=== PATIENT | male | born 2005 | race Caucasian/White ===

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

== ENCOUNTER 2024-02-06 21:28 | Emergency (ER) | payer MEDICAID, SELFPAY ==
[2024-02-06 21:29] VITALS: BP 149/93; PULSE 70; RESP 16; TEMP 36.2; O2SAT 98; BMI 22.7
--- NOTE | 2024-02-06 22:25 | RAD_ITS ---
STUDY: X-RAY CHEST REASON FOR EXAM: Male, 18 years old. chest pain TECHNIQUE: August 22 2023 COMPARISON: None. FINDINGS: The lungs are clear and expanded. There is no demonstrated pleural abnormality. Normal size heart. Normal mediastinum and charlie. Normal visualized pulmonary arteries. Normal visualized aortic arch and descending thoracic aorta. Normal visualized thoracic spine. Normal visualized ribs, clavicles, and shoulders. There is no demonstrated abnormality of the visualized soft tissue structures of the upper abdomen. RAD/Chest PA and Lateral IMPRESSION: Normal x-ray examination of the chest. Electronically Signed: Edilson Banks MD at 23:04 EDT ,
--- NOTE | 2024-02-06 22:31 | EKG12_ITS ---
Test Reason : CP Blood Pressure : / mmHG Vent. Rate : 068 BPM Atrial Rate : 068 BPM P-R Int : 146 ms QRS Dur : 090 ms QT Int : 364 ms P-R-T Axes : 026 086 040 degrees QTc Int : 387 ms Normal sinus rhythm Normal ECG Confirmed by Osito Montes ([id number]), graphic editor ECTOR ABURTO ([id number]) on 02/07/2024 12:57:32 PM Referred By: [facility] Confirmed By:Osito Montes
--- NOTE | 2024-02-06 23:46 | EX.ED.DYSGE1 ---
HPI History of Present Illness Chief Complaint: Chest Pain Informant: patient and friend Narrative Narrative: Patient is a 18-year-old male with history of anxiety. He states over the past 6 to 7 months he has been experience episodes of palpitations and chest discomfort. He states he went to a safety spec who performed an EKG and told him there was no abnormalities. He states his family doctor has him on anxiety medication. He states that despite having the medication he still has recurrent symptoms. He denies any family history of cardiac disease at a young age. He denies any illicit drug use or excessive stimulant use. He denies any recent travel surgery or history of DVT/PE. Patient states that he has been having palpitations still and feeling some upper back pain. He does admit to recent swimming activity but does not feel this is muscle in nature and therefore comes in for evaluation [facility] Medical History (Updated 02/07/24 @ 03:[address] Murray Gorman DO) Anxiety Home Medications ?Medication ?Instructions ?Recorded ?Last Taken ?Type sertraline 25 mg tablet 25 mg PO DAILY 02/06/24 Unknown History Allergy/AdvReac Type Severity Reaction Status Date / Time No Known Allergies Allergy Verified 02/06/24 21:32 Social History Smoking Status: Current some day smoker tobacco type: e-cigarettes ROS ROS ED Constitutional Constitutional ED: Denies chills or fever(s) ENT ENT ED: Denies sore throat Cardiovascular Cardiovascular: Reports chest pain, palpitations and racing heartbeat Respiratory/Chest Respiratory/Chest: Denies cough or dyspnea Gastrointestinal Gastrointestinal: Denies abdominal pain, diarrhea, nausea or vomiting Genitourinary Genitourinary ED: Denies dysuria Musculoskeletal Musculoskeletal: Reports back pain Integumentary Denies rash Neurologic Neurologic: Denies headache(s) Psychiatric Psychiatric: Reports anxiety; Denies suicidal ideation or suicidal thoughts Hematologic/Lymphatic Hematologic/Lymphatic: Denies easy bleeding or easy bruising EXAM Physical Exam Const Vital Signs: 02/06/24 21:29 02/07/24 00:00 02/07/24 00:06 Temperature 97.2 F L 98.1 F Temperature Source Temporal Pulse Rate 70 63 63 Respiratory Rate 16 18 13 Blood Pressure 149/93 H 134/79 H Blood Pressure Mean 111 97 Pulse Ox 98 98 98 Oxygen Delivery Method Room Air Room Air Positive well nourished and well developed General Appearance ED: well developed; Negative for pallor HEENT HEENT Narrative: Normocephalic atraumatic Eyes PERRL and EOMs intact bilaterally Neck supple Neck Narrative: No carotid bruit noted Chest Wall palpation of chest normal Chest Narrative: No bony deformity or crepitance Resp normal respiratory effort and clear to auscultation bilaterally Cardio regular rate and regular rhythm Rate: other Other Details: Heart is regular rate and rhythm without murmurs rubs or gallop Radial and carotid pulses equal and symmetric Back/Spine no CVA tenderness Back/Spine Narrative: No bony deformity or step-off of the thoracic or lumbar spine no midline tenderness to palpation Extremity normal to inspection Extremity Narrative: No asymmetric edema no pitting edema negative Homans' sign bilaterally Neuro oriented x3, CN's II-XII intact bilaterally and no sensory deficits noted Sensorium / Orientation: alert Motor Exam: strength 5/5 throughout Psych Psych Narrative: Patient has a nervous/anxious affect Skin no rashes or lesions noted and no wounds General Skin Exam: Negative for jaundice or pallor MDM MDM MDM Narrative Medical decision making narrative: Patient arrived to ER mildly hypertensive otherwise with stable vitals. He is low risk for cardiovascular disease as well as DVT/PE. His history and exam is most consistent with anxiety as a cause of his symptoms. However as there is concern he could have cardiac dysrhythmia or acute coronary syndrome or potential pneumonia or pneumothorax I did elect to perform an EKG and chest x-ray. EKG showed normal sinus rhythm without ischemic changes going against acute coronary syndrome. He was kept on the monitor and there was no cardiac dysrhythmia noted. Chest x-ray revealed no acute lung pathology such as pneumonia or pneumothorax. Therefore at this time as patient is low risk for cardiovascular disease and vitals are stable and there is been no abnormal heart rhythm as well as no signs of decreased blood flow and x-ray does not show any lung pathology I feel he can follow-up with his family doctor on outpatient basis to discuss potential echo and Holter monitor if symptoms persist. History & Record Review Discussion w/independent historian: Patient and Friend Radiography Diagnostic Testing: Clinical Impression(s) from Imaging Studies Chest X-Ray 02/06/24 22:25 IMPRESSION: Normal x-ray examination of the chest. Electronically Signed: Edilson Banks MD at 23:04 EDT , 2 view chest x-ray as interpreted by the emergency medicine physician reveals no acute infiltrate pneumothorax pleural effusion or widening of the mediastinum Discharge Plan Triage Chief Complaint: Chest Pain ED Provider: Murray Gorman Dx/Rx/DC Orders Clinical Impression: Acute nonspecific chest pain with low risk of coronary artery disease, Anxiety Instructions: ED Chest Pain, Uncertain Cause Prescriptions: No Action sertraline 25 mg tablet 25 mg PO DAILY Primary Care Provider: Alba Schwartz NP Referrals: Alba Schwartz ASSEMBLY AND PACKING SUPERVISOR, ASSEMBLY AND PACKING SUPERVISOR-C [Primary Care Provider] - Activity Restrictions/Additional Instructions: Please discuss with your family doctor about obtaining an outpatient echo to further assess the cause of your symptoms and check for potential valvular issues. Also because of your recurrent palpitations discuss obtaining a Holter monitor to further assess your cardiac rhythm over a longer period of time. Return to the ER should you have any further concerns Print Language: Mongolian Disposition Disposition: Home, Self Care Discharge Date/Time: 02/07/24 00:07
[2024-02-07] VITALS: PULSE 63; RESP 18; O2SAT 98
[2024-02-07 00:06] VITALS: BP 134/79; PULSE 63; RESP 13; TEMP 36.7; O2SAT 98
== END 2024-02-07 00:07 | disposition home or self-care (01) ==
PROVIDERS: Emergency Provider Emergency Medicine; PCP Nurse Practitioner Family; Visit Provider Emergency Medicine
DX: F41.9 Anxiety disorder, unspecified (principal); Z79.899 Other long term (current) drug therapy; F17.290 Nicotine dependence, other tobacco product, uncomplicated; R07.9 Chest pain, unspecified
CPT/HCPCS: 71046; 93005; 99283; A4216

== ENCOUNTER 2025-04-06 00:12 | Emergency (ER) | payer MEDICAID, SELFPAY ==
[2025-04-06 00:13] VITALS: BP 114/57; PULSE 115; RESP 18; TEMP 37.1; O2SAT 94; BMI 23.2
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
--- OUTSIDE RECORDS SUMMARY | 2025-04-06 01:20 | XMS RPT_ITS | CCD ---
Author Organization [facility] Care Team Providers Care Clinical Resource Coordinator Name Role Phone DELIO VACA Attending Unavailable REFERRED, SELF Referring Unavailable ECTOR SINGH Primary Care Unavailable NABIL MEYER, MODESTO Cm Primary Care Physician Queden PARQUET FLOOR LAYER.DECKHAND SHRIMP BOAT, Alba A Primary Care Provider Queden [employer].DECKHAND SHRIMP BOAT, Alba A Primary Care Provider Murray Gorman Attending Unavailable [place] CYBER THREAT ANALYST, Alba Primary Care Unavailable Uli Bond Attending Unavailable Care Physician, No Primary Primary Care Unava ilable QUEDEN, ALBA A Attending Unavailable QUEDEN, ALBA A Primary Care Unavailable QUEDEN, ALBA A Referring Unavailable QUEDEN, ALBA A Primary Care Unavailable QUEDEN, ALBA A Attending Unavailable QUEDEN, ALBA A Primary Care Unavailable MANDO GOODEN DO Attending Unavailable NABIL MEYER, MODESTO Cm Primary Care Unavailjohanna ALAS MD, DR MARCUS Attending Anita CHAPMAN MD, MODESTO Cm Primary Care Unavailjohanna ALAS MD, DR MARCUS Attending Unavailjohanna CHAPMAN MD, MODESTO Cm Primary Care Unavailjohanna e Unavailable Primary Care Provider UnavailANNABELLE Sparrow Attending Unavailable Medications Current Medications Medication Drug Class(es) Dates Sig (Normalized) Sig (Original) cyclobenzaprine hydrochloride 5 mg oral tablet (9 sources) Muscle Relaxant Start: 02-10-2024 End: 04-03-2024 take 1 tablet by mouth twice daily as needed cyclobenzaprine (FLEXERIL) 5 mg tablet Indications: Upper back pain Take 1 tablet by mouth two times a day as needed. 14 tablet 04/03/2024 Active naproxen 500 mg oral tablet (7 sources) Nonsteroidal Anti-inflammatory Drug Start: 02-10-2024 take 1 tablet by mouth twice daily as needed for pain naproxen (NAPROSYN) 500 mg tablet Indications: Upper back pain Take 1 tablet by mouth two times a day as needed (FOR PAIN - TAKE WITH FOOD.). 14 tablet 02/10/2024 Active sertraline 100 mg oral tablet (18 sources) Serotonin Reuptake Inhibitor Start: 05-08-2024 take 1 tablet by mouth once daily sertraline (ZOLOFT) 100 mg tablet Indications: Anxiety Take 1 tablet by mouth once daily. 90 tablet 1 05/08/2024 Active Start: 03-05-2024 Zoloft See Ins tructions, Oral qDay, 0 Refill(s) Start Date: 03/05/24 Status: Ordered Start: 02-10-2024 End: 05-07-2024 take 1 tablet by mouth once daily sertraline (ZOLOFT) 100 mg tablet Indications: Anxiety Take 1 tablet by mouth once daily. 90 tablet 1 04/03/2024 05/07/2024 Discontinued Start: 11-14-2023 End: 02-10-2024 take 1 tablet by mouth once daily sertraline (ZOLOFT) 25 mg tablet Indications: Anxiety Take 1 tablet by mouth once daily. 90 tablet 1 12/12/2023 02/10/2024 Discontinued Comment on above: Take 1 tablet by stahya th as directed. Take 1/2 tablet daily for 7 days and then increase to 1 full tablet daily Completed/Discontinued Medications Medication Drug Class(es) Dates Sig (Normalized) Sig (Original) ondansetron 4 mg disintegrating oral tablet (1 source) Serotonin-3 Receptor Antagonist Start: 04-29-2024 End: 04-29-2024 take 1 dose by mouth once 4 mg, Oral, ONCE, 1 dose, On 04/29/24 at 0245 Problems Active Problems Problem Classification Problem Date Documented Da te Episodic/Chronic Anxiety disorders (7 sources) Anxiety; Translations: [Anxiety disorder, unspecified] Onset: 11-14-2023 11-14-2023 Chronic Fluid and electrolyte disorders (1 source) Hypokalemia; Translations: [Hypokalemia] 08-22-2023 Episodic Other skin disorders (1 source) Mass of subcutaneous tissue of upper limb; Translations: [Localized swelling, mass and lump, unspecified upper limb] Onset: 08-30-2023 Episodic Spondylosis; intervertebral disc disorders; other back problems (5 sources) Backache; Translations: [Dorsalgia, unspecified] Onset: 02-10-2024 02-10-2024 Episodic Past or Other Problems Problem Classification Problem Date Documented Da te Episodic/Chronic Alcohol-related disorders (3 sources) Alcohol intoxication; Translations: [Alcohol use, unspecified with intoxication, uncomplicated] Onset: 04-29-2024 04-29-2024 Episodic Cardiac dysrhythmias (18 sources) Palpitations; Translations: [Palpitations] Onset: 09-07-2023 08-22-2023 Episodic Malaise and fatigue (2 sources) Lack of energy; Translations: [Other fatigue] Onset: 11-14-2023 11-14-2023 Episodic Results Test Name Value Interpretation Reference Range Facility GLUCOSE POCon 04-29-2024 Glucose [Mass/Vol] 103 mg/dL High 70 - 99 mg/dL [facility] Interpretation and review of laboratory results Abnormal [facility] POC Sample Type CAPBL [facility] Test performed at address of the patient encounter. [facility] CNOVon 02-10-2024 CNOV Office Visit (AGFAMPLE) ANDREAMEHULCHACHA MARI ([id number]) 3 M Date Time Provider Department 02/10/24 2:20 PM ALBA KEN During your visit today, we recorded the following information about you: Temperature Pulse Respiration Blood pressure 98 degrees 60/minute 18/minute 106/62 Weight Height 66.7 kg 1.721 m Alba Ken APRN.DECKHAND SHRIMP BOAT 02/12/2024 3:49 PM Signed CHIEF COMPLAINT: Chacha Mendez II is a 18 year old male who presents for Follow up anxiety . I reviewed past medical, surgical, social, and family histories today and updated chart. Allergies, chronic medications, and supplements were also reviewed. Having upper back pain on both sides for the last 4-5 days Hard to go to sleep Pain can be sharp No previous injury No N/T Massage helped Hasn't taken anything for pain Went to the [facility] ER for chest pain Couldn't take a deep breath in because of chest pain and back pain Flora like his heart would beat fast after he gets out of the pool CXR was normal and EKG showed NSR He was advised to speak with me about obtaining a Holter monitor He was also advised to discuss increasing his Zoloft since there may be an anxiety component to his symptoms He has take 2 tablets of his Zoloft for the last week and hasn't noticed a difference yet STUDY: X-RAY CHEST REASON FOR EXAM: Male, 18 years old. chest pain TECHNIQUE: August 22 2023 COMPARISON: None. FINDINGS: The lungs are clear and expanded. There is no demonstrated pleural abnormality. Normal size heart. Normal mediastinum and charlie. Normal visualized pulmonary arteries. Normal visualized aortic arch and descending thoracic aorta. Normal visualized thoracic spine. Normal visualized ribs, clavicles, and shoulders. There is no demonstrated abnormality of the visualized soft tissue structures of the upper abdomen. The history is provided by the patient. History reviewed. No pertinent past medical history. History reviewed. No pertinent surgical history. Social History Tobacco Use Smoking status: Never Smokeless tobacco: Never Vaping Use Vaping Use: Former Substances: Nicotine Substance Use Topics Alcohol use: Never Drug use: Never ALLERGIES No Known Allergies Family History Problem Relation Age of Onset other (WPW) Mother Hypertension Father Thyroid Sister Heart Attack Paternal Grandfather Current Outpatient Medications Medication Sig Dispense Refill sertraline (ZOLOFT) 100 mg tablet Take 1 tablet by mouth once daily. 30 tablet 2 cyclobenzaprine (FLEXERIL) 5 mg tablet Take 1 tablet by mouth two times a day as needed for pain or muscle spasm. 14 tablet 0 naproxen (NAPROSYN) 500 mg tablet Take 1 tablet by mouth two times a day as needed (FOR PAIN - TAKE WITH FOOD.). 14 tablet 0 No current facility-administered medications for this visit. Review of Systems Constitutional: Negative for appetite change, chills, diaphoresis, fatigue, fever and unexpected weight change. Respiratory: Positive for shortness of breath. Negative for cough, chest tightness and wheezing. Cardiovascular: Positive for chest pain and palpitations. Negative for leg swelling. Gastrointestinal: Negative for abdominal pain, constipation, diarrhea, nausea and vomiting. Musculoskeletal: Positive for back pain. Neurological: Negative for headaches. Psychiatric/Behaviora l: Positive for sleep disturbance. The patient is nervous/anxious. BP 106/62 Pulse 60 Temp 98 Resp 18 Ht 5' 7.75 (1.72m) Wt 147 lb (66.7kg) SpO2 98% BMI 22.51 kg/(m2). Physical Exam Vitals and nursing note reviewed. Constitutional: Appearance: Normal appearance. HENT: Mouth/Throat: Mouth: Mucous membranes are moist. Pharynx: Oropharynx is clear. Eyes: Pupils: Pupils are equal, round, and reactive to light. Cardiovascular: Rate and Rhythm: Normal rate and regular rhythm. Pulses: Normal pulses. Heart sounds: Normal heart sounds. No murmur heard. Pulmonary: Effort: Pulmonary effort is normal. Breath sounds: Normal breath sounds. Chest: Chest wall: No swelling, tenderness or crepitus. Musculoskeletal: Cervical back: Neck supple. Lymphadenopathy: Cervical: No cervical adenopathy. Skin: General: Skin is warm and dry. Neurological: Mental Status: He is alert and oriented to person, place, and time. Psychiatric: Mood and Affect: Mood is anxious. Behavior: Behavior normal. Cognition and Memory: Cognition normal. ASSESSMENT/PLAN: 1. Anxiety - ICD9: 300.00, ICD10: F41.9 (primary diagnosis) - Increase Zoloft to 100 mg daily - F/U in 2 months or sooner if needed - SERTRALINE 100 MG TABLET 2. Palpitations - ICD9: 785.1, ICD10: R00.2 - HOLTER MONITOR 72 HOUR 3. Upper back pain - ICD9: 724.5, ICD10: M54.9 - Suspe (more content not included)... Normal [facility] 12 Lead EKGon 02-06-2024 12 Lead EKG [facility] [address] [place] [address] 12 Lead EKG 02/06/24 2144 MR#: [id number] Acct: [id number] Name: CHACHA MENDEZ II Rep #: [id number] : 2005 18 From: Osito Montes MD Attending Dr: Status: DEP ER Ordering Dr: Murray Gorman DO Date: 02/06/24 Location: ED Sex: M H Admitted: Test Reason : CP Blood Pressure : / mmHG Vent. Rate : 068 BPM Atrial Rate : 068 BPM P-R Int : 146 ms QRS Dur : 090 ms QT Int : 364 ms P-R-T Axes : 026 086 040 degrees QTc Int : 387 ms Normal sinus rhythm Normal ECG Confirmed by Osito Montes ([id number]), health editor ECTOR ABURTO ([id number]) on 02/07/2024 12:57:32 PM Referred By: ES Confirmed By:Osito Montes 02/07/24 1257 Date Osito Montes MD CC: CYBER THREAT ANALYST-C Alba Ken; Murray Gorman DO Signed Normal [facility] Chest PA and Lateralon 02-05 Chest PA and Lateral [facility] [address] [place] [address] Chest PA and Lateral MR#: [id number] Acct: [id number] Name: CHACHA MENDEZ II Rep #: [id number] : 2005 M 18 From: Edilson Monroy PCP: TELLY Welch Status: REG ER Study: Chest PA and Lateral Date of Exam: 02/06/24 Exam# [id number] Ordering Dr: Murray Gorman DO [id number] STUDY: X-RAY CHEST REASON FOR EXAM: Male, 18 years old. chest pain TECHNIQUE: August 22 2023 COMPARISON: None. FINDINGS: The lungs are clear and expanded. There is no demonstrated pleural abnormality. Normal size heart. Normal mediastinum and charlie. Normal visualized pulmonary arteries. Normal visualized aortic arch and descending thoracic aorta. Normal visualized thoracic spine. Normal visualized ribs, clavicles, and shoulders. There is no demonstrated abnormality of the visualized soft tissue structures of the upper abdomen. RAD/Chest PA and Lateral IMPRESSION: Normal x-ray examination of the chest. Electronically Signed: Edilson Banks MD at 23:04 EDT , CC: TELLY Ken; Murray Gorman DO Family Resource Specialist: Signed Normal [facility] Emergency Department Summary on 02-06-2024 Emergency Department Summary [facility] Medical Records Department [address] [place] [id number] Emergency Department Summary 02/06/24 MR#: [id number] Acct: [id number] Name: CHACHA MENDEZ II Rep #: [id number] : 2005 18 From: Murray Gorman DO PCP: TELLY Welch Status:DEP ER Location: ED HPI History of Present Illness Chief Complaint: Chest Pain Informant: patient and friend Narrative Narrative: Patient is a 18-year-old male with history of anxiety. He states over the past 6 to 7 months he has been experience episodes of palpitations and chest discomfort. He states he went to a optometrist/practice owner who performed an EKG and told him there was no abnormalities. He states his family doctor has him on anxiety medication. He states that despite having the medication he still has recurrent symptoms. He denies any family history of cardiac disease at a young age. He denies any illicit drug use or excessive stimulant use. He denies any recent travel surgery or history of DVT/PE. Patient states that he has been having palpitations still and feeling some upper back pain. He does admit to recent swimming activity but does not feel this is muscle in nature and therefore comes in for evaluation [facility] Medical History (Updated 02/07/24 @ 03:[address] Murray Gorman, DO) Anxiety Home Medications ???Medication ???Instructions ???Recorded ???Last Taken ???Type sertraline 25 mg tablet 25 mg PO DAILY 02/06/24 Unknown History Allergy/AdvReac Type Severity Reaction Status Date / Time No Known Allergies Allergy Verified 02/06/24 21:32 Social History Smoking Status: Current some day smoker tobacco type: e-cigarettes ROS ROS ED Constitutional Constitutional ED: Denies chills or fever(s) ENT ENT ED: Denies sore throat Cardiovascular Cardiovascular: Reports chest pain, palpitations and racing heartbeat Respiratory/Chest Respiratory/Chest: Denies cough or dyspnea Gastrointestinal Gastrointestinal: Denies abdominal pain, diarrhea, nausea or vomiting Genitourinary Genitourinary ED: Denies dysuria Musculoskeletal Musculoskeletal: Reports back pain Integumentary Denies rash Neurologic Neurologic: Denies headache(s) Psychiatric Psychiatric: Reports anxiety; Denies suicidal ideation or suicidal thoughts Hematologic/Lymphatic Hematologic/Lymphatic : Denies easy bleeding or easy bruising EXAM Physical Exam Const Vital Signs: 02/06/24 21:29 02/07/24 00:00 02/07/24 00:06 Temperature 97.2 F L 98.1 F Temperature Source Temporal Pulse Rate 70 63 63 Respiratory Rate 16 18 13 Blood Pressure 149/93 H 134/79 H Blood Pressure Mean 111 97 Pulse Ox 98 98 98 Oxygen Delivery Method Room Air Room Air Positive well nourished and well developed General Appearance ED: well developed; Negative for pallor HEENT HEENT Narrative: Normocephalic atraumatic Eyes PERRL and EOMs intact bilaterally Neck supple Neck Narrative: No carotid bruit noted Chest Wall palpation of chest normal Chest Narrative: No bony deformity or crepitance Resp normal respiratory effort and clear to auscultation bilaterally Cardio regular rate and regular rhythm Rate: other Other Details: Heart is regular rate and rhythm without murmurs rubs or gallop Radial and carotid pulses equal and symmetric Back/Spine no CVA tenderness Back/Spine Narrative: No bony deformity or step-off of the thoracic or lumbar spine no midline tenderness to palpation Extremity normal to inspection Extremity Narrative: No asymmetric edema no pitting edema negative Homans' sign bilaterally Neuro oriented x3, CN's II-XII intact bilaterally and no sensory deficits noted Sensorium / Orientation: alert Motor Exam: strength 5/5 throughout Psych Psych Narrative: Patient has a nervous/anxious affect Skin no rashes or lesions noted and no wounds General Skin Exam: Negative for jaundice or pallor MDM MDM MDM Narrative Medical decision making narrative: Patient arrived to ER mildly hypertensive otherwise with stable vitals. He is low risk for cardiovascular disease as well as DVT/PE. His history and exam is most consistent with anxiety as a cause of his symptoms. However as there is concern he could have cardiac dysrhythmia or acute coronary syndrome or potential pneumonia or pneumothorax I did elect to perform an EKG and chest x- ray. EKG showed normal sinus rhythm without ischemic changes going against acute coronary syndrome. He was kept on the monitor and there was no cardiac dysrhythmia noted. Chest x-ray revealed no acute lung pathology such as pneumonia or pneumothorax. Therefore at this time as patient is low risk for cardiovascular disease and vitals are stable and there is been no abnormal heart r (more content not included)... Normal [facility] CNCO Letter Text Normal [facility] CNPMaris 02-03-2024 [place] Telephone (AGFAMPLE) CHACHA MENDEZ II ([id number]) 3 M Date Time Provider Department 02/03/24 ALBA KEN During your visit today, we recorded the following information about you: Leah Benitez 02/03/2024 2:47 PM Signed No Show Documentation Chacha Mendez II no showed for an appointment on 02/03/24 with Alba Ken APRN.CNP at 1:20 pm. He was scheduled for follow up anxiety AND meds. I called and was unable to speak with the patient regarding his missed appointment. Chacha did not state the reason that he missed his appointment was because pt did not answer call . Resources discussed/offered to patient: left message. No show determined to be fault of patient: Yes This is the patients second no show in the last 12 months. Patient was rescheduled for NA. Letter sent through [employer]. Is this the Third or Fourth No Show? Melanie Benitez February 03, 2024 2:45 PM Allergies As of Date: 02/03/2024 (No Known Allergies) Date Reviewed: 11/14/2023 Reviewed by: Alba Ken APRN.CNP - Fully Assessed Reason for Visit: No Show [1556] Cmt: Pt no show for appt on 02/03/24 Prescriptions as of 02/03/2024 - sertraline (ZOLOFT) 25 mg tablet Take 1 tablet by mouth once daily. Problem List As Of Date 02/03/2024 Noted Resolved Palpitations [R00.2] 09/07/2023 Encounter Status:Closed by LEAH BENITEZ on 02/03/24 [facility] CNCTaiwo 01-16-2024 CNCO Letter Text [facility] CNPMaris 01-16-2024 [place] Telephone (AGFAMPLE) CHACHA MENDEZ II ([id number]) 3 M Date Time Provider Department 01/16/24 ALBA KEN During your visit today, we recorded the following information about you: SorensenBuffy matute 01/16/2024 2:44 PM Signed No Show Documentation Chacha Mendez II no showed for an appointment on 01/16/2024 with Alba Ken APRN.CNP at 2:00 pm. He was scheduled for follow up for anxiety. I called and was unable to reach the patient regarding his missed appointment Resources discussed/offered to patient: na No show determined to be fault of patient: Yes This is the patients first no show in the last 12 months. Patient was rescheduled for na. Letter sent thru mychart : Yes Is this the Third or Fourth No Show? Melanie Sorensen January 16, 2024 2:43 PM Allergies As of Date: 01/16/2024 (No Known Allergies) Date Reviewed: 11/14/2023 Reviewed by: Alba Ken APRN.DECKHAND SHRIMP BOAT - Fully Assessed Reason for Visit: Missed Appointment [1304] Cmt: 1st no show in 365 days (1st letter sent) Prescriptions as of 01/16/2024 - sertraline (ZOLOFT) 25 mg tablet Take 1 tablet by mouth once daily. Problem List As Of Date 01/16/2024 Noted Resolved Palpitations [R00.2] 09/07/2023 Encounter Status:Closed by BUFFY SORENSEN on 01/16/24 Normal [facility] 25(OH)D3 SerPl-mCncon 2023 25-hydroxyvitamin D3 [Mass/Vol] 21.4 ng/mL Low >=30.0 [facility] Comment on above: Order Comment: Speci men Type: BLOOD SPECIMENOrdering Facility: [facility] Address: [address] [place] [address] Result Comment: Clas sification of 25 [place] Vitamin D status: Deficiency: <= 20.0 ng/ml. Insufficiency: 21.0-29.0 ng/ml. Sufficiency: >= 30.0 ng/ml. Performed By: #### 1 989-3 ####[facility] LABORATORYCLIA [id number] [place] [address] [place] CBC panel Auto (Bld)on 11-13 Erythrocyte distribution width (RBC) [Ratio] 12.0 % 11.5 - 15.0 % [facility] Hematocrit (Bld) [Volume fraction] 43.0 % 39.0 - 51.0 % [facility] Hemoglobin (Bld) [Mass/Vol] 14.3 g/dL 13.0 - 17.0 g/dL [facility] MCH (RBC) [Entitic mass] 32.1 pg 26.0 - 34.0 pg [facility] MCHC (RBC) [Mass/Vol] 33.3 g/dL 30.5 - 36.0 g/dL [facility] MCV (RBC) [Entitic vol] 96.4 fL 80.0 - 100.0 fL [facility] Platelet mean volume (Bld) [Entitic vol] 9.2 fL 9.0 - 12.7 fL [facility] Platelets (Bld) [#/Vol] 235 10*3/uL 150 - 400 k/uL [facility] RBC (Bld) [#/Vol] 4.46 10*6/uL 4.20 - 6.0 0 m/uL [facility] WBC (Bld) [#/Vol] 5.98 10*3/uL 3.70 - 11. 00 k/uL [facility] Erythrocyte distribution width (RBC) [Ratio] 12.0 % Normal 11.5-15.0 [facility] Comment on above: Order Comment: Speci men Type: BLOOD SPECIMENOrdering Facility: [facility] Address: [address] [place] [address] Performed By: #### 5 8410-2 ####[facility] LABCLIA [id number] [place] [address] [place] [facility] Hematocrit (Bld) [Volume fraction] 43.0 % Normal 39.0-51.0 [facility] Comment on above: Order Comment: Speci men Type: BLOOD SPECIMENOrdering Facility: [facility] Address: [address] [place] [address] Performed By: #### 5 8410-2 ####[facility] LABCLIA [id number] [place] [address] [place] Hemoglobin (Bld) [Mass/Vol] 14.3 g/dL Normal 13.0-17.0 [facility] Comment on above: Order Comment: Speci men Type: BLOOD SPECIMENOrdering Facility: [facility] Address: [address] [place] [address] Performed By: #### 5 8410-2 ####[facility] LABCLIA [id number] [place] [address] [facility] MCH (RBC) [Entitic mass] 32.1 pg Normal 26.0-34.0 [facility] Comment on above: Order Comment: Speci men Type: BLOOD SPECIMENOrdering Facility: [facility] Address: [address] [place] [address] Performed By: #### 5 8410-2 ####[facility] LABCLIA [id number] [place] [address] [facility] MCHC (RBC) [Mass/Vol] 33.3 g/dL Normal 30.5-36.0 [facility] Comment on above: Order Comment: Speci men Type: BLOOD SPECIMENOrdering Facility: [facility] Address: [address] [place] [address] Performed By: #### 5 8410-2 ####[facility] LABCLIA [id number] [place] [address] [facility] MCV (RBC) [Entitic vol] 96.4 fL Normal 80.0-100.0 [facility] Comment on above: Order Comment: Speci men Type: BLOOD SPECIMENOrdering Facility: [facility] Address: [address] [place] [address] Performed By: #### 5 8410-2 ####[facility] LABIA [id number] [place] [address] [facility] Platelet mean volume (Bld) [Entitic vol] 9.2 fL Normal 9.0-12.7 [facility] Comment on above: Order Comment: Speci men Type: BLOOD SPECIMENOrdering Facility: [facility] Address: [address] [place] [address] Performed By: #### 5 8410-2 ####[facility] LABCLIA [id number] [place] [address] [facility] [place] Platelets (Bld) [#/Vol] 235 10*3/uL Normal 150-400 [facility] Comment on above: Order Comment: Speci men Type: BLOOD SPECIMENOrdering Facility: [facility] Address: [address] [place] [address] Performed By: #### 5 8410-2 ####[facility] LABCLIA [id number] [place] [address] [facility] RBC (Bld) [#/Vol] 4.46 10*6/uL Normal 4.20-6.00 [facility] Comment on above: Order Comment: Speci men Type: BLOOD SPECIMENOrdering Facility: [facility] Address: [address] [place] [address] Performed By: #### 5 8410-2 ####[facility] LABCLIA [id number] [place] [id number] [facility] WBC (Bld) [#/Vol] 5.98 10*3/uL Normal 3.70-11.00 [facility] Comment on above: Order Comment: Speci men Type: BLOOD SPECIMENOrdering Facility: [facility] [facility] Address: [address] [place] [address] Performed By: #### 5 8410-2 ####[facility] [id number] [place] [id number] [facility] CNOVon 11-14-2023 CNOV Office Visit (AGFAMPLE) CHACHA MENDEZ II ([id number]) 3 M Date Time Provider Department 11/14/23 9:40 AM ALBA KEN During your visit today, we recorded the following information about you: Temperature Pulse Respiration Blood pressure 97.6 degrees 62/minute 16/minute 110/58 Weight Height 69.4 kg 1.721 m Alba Ken APRN.FARHEEN 11/14/2023 12:44 PM Signed [facility] Alba Ken [employer] [employer] [address] [place] [address] Dept Dept. Visit Date: November 14, 2023 Mr.Xavier Andrea GUERRA Date of : 2005 MRN/E #: [id number] Chief Complaint: Patient presents with: New Patient: Establish care previous pcp was Diane Chapman in [facility]. Would like to discuss anxiety has had it since August History of Present Illness Chacha Mendez II is a 18 year old male presents today as a new patient to establish care. He would like to discuss anxiety today. I reviewed past medical, surgical, social, and family histories today and updated chart. Allergies, chronic medications, and supplements were also reviewed. 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 Would take a Benadryl but could make him sleep late. Drinks water primarily Eating healthy Working out more Sister has thyroid problem His aunt has anxiety Was having palpitations and was seen by cardiology We had the pleasure of seeing Chacha Mendez II in the Heart Center at [facility] on August 24, 2023. As you know, Chacha is a 17 y.o. male seen in evaluation for palpitations. He reports an episode of palpitations 5 days ago following drinking an energy drink. 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 He then experienced another episode of palpitations 1 day ago at night with a reported heart rate of approximately 90 beats per minute. There has been no chest pain, shortness of breath, or syncope. Evaluation today demonstrated a normal cardiac examination and benign ECG. Palpitations are feelings of your heart beating differently and are often normal or benign heart beats that typically require no intervention or treatment. We will work to capture your symptoms on glaciologist to determine the heart rhythm at those times. 1. Continue primary medical care as directed. 2. No cardiac medications recommended. Recommend continuing to avoid caffeine and continuing to drink a minimum of 80-100 ounces of caffeine free fluid daily. 3. No activity restrictions from a cardiovascular perspective. 4. No restrictions or special requirements for anesthesia from a cardiovascular perspective. 5. No scheduled cardiology follow-up is required at this time. We will follow-up the cardiac event monitor results by phone and arrange additional follow-up as needed. Did the Kardia heart monitor but it was giving him anxiety when checking it so he stopped using it. History reviewed. No pertinent past medical history. History reviewed. No pertinent surgical history. Social History Tobacco Use Smoking status: Never Smokeless tobacco: Never Vaping Use Vaping Use: Former Substances: Nicotine Substance Use Topics Alcohol use: Never Drug use: Never Social History Social History Narrative Not on file Family History Reviewed Including Cardiac Diseases, Psychiatric Diseases, AND Substance Abuse Problem: other (WPW) Relation: Mother Age of Onset: (Not Specified) Problem: Hypertension Relation: Father Age of Onset: (Not Specified) Problem: Thyroid Relation: Sister Age of Onset: (Not Specified) Problem: Heart Attack Relation: Paternal Grandfather Age of Onset: (Not Specified) ALLERGIES No Known Allergies Current Outpatient Medications Medication Sig sertraline (ZOLOFT) 25 mg tablet Take 1 tablet by mouth as directed. Take 1/2 tablet daily for 7 days and then increase to 1 full tablet daily No current fac (more content not included)... Normal [facility] Comprehensive metabolic 2000 panelon 11-14-2023 Albumin [Mass/Vol] 4.3 g/dL 3.9 - 4.9 g/dL [facility] ALP [Catalytic activity/Vol] 66 U/L 38 - 113 U/L [facility] ALT With P-5'-P [Catalytic activity/Vol] 17 U/L 10 - 54 U/L [facility] Anion gap [Moles/Vol] 10 mmol/L 9 - 18 mmol/L [facility] AST With P-5'-P [Catalytic activity/Vol] 18 U/L 14 - 40 U/L [facility] Bilirubin [Mass/Vol] 0.5 mg/dL 0.2 - 1 .3 mg/dL [facility] Calcium [Mass/Vol] 9.6 mg/dL 8.5 - 10. 2 mg/dL [facility] Chloride [Moles/Vol] 104 mmol/L 97 - 10 5 mmol/L [facility] CO2 [Moles/Vol] 27 mmol/L 22 - 30 mmol/L [facility] Creatinine [Mass/Vol] 0.71 mg/dL Low 0.73 - 1.22 mg/dL [facility] Estimated Glomerular Filtration Rate 136 mL/min/1.73m >=60 mL/min/1.73m [facility] Glucose [Mass/Vol] 95 mg/dL 74 - 99 mg/dL [facility] Potassium [Moles/Vol] 4.0 mmol/L 3.7 - 5.1 mmol/L [facility] Protein [Mass/Vol] 6.9 g/dL 6.3 - 8.0 g/dL [facility] Sodium [Moles/Vol] 141 mmol/L 136 - 144 mmol/L [facility] Urea nitrogen [Mass/Vol] 16 mg/dL 9 - 24 mg/dL [facility] Albumin [Mass/Vol] 4.3 g/dL Normal 3.9-4.9 [facility] Comment on above: Order Comment: Paige ramires Type: BLOOD SPECIMEN Ordering Facility: [facility] Address: [address] [place] [address] Performed By: #### 2 4323-8, 6-3 #### [facility] CLIA [id number] [address] [place] [address] ALP [Catalytic activity/Vol] 66 U/L Normal 38-113 [facility] Comment on above: Order Comment: Giuseppei men Type: BLOOD SPECIMEN Ordering Facility: [facility] Address: [address] [place] [address] Performed By: #### 2 4323-8, 3016-3 #### [facility] CLIA [id number] [address] [place] [address] [place] ALT With P-5'-P [Catalytic activity/Vol] 17 U/L Normal 10-54 [facility] Comment on above: Order Comment: Speci men Type: BLOOD SPECIMEN Ordering Facility: [facility] Address: [address] [place] [address] Performed By: #### 2 4323-8, 3016-3 #### [facility] CLIA [id number] [address] [place] [address] [place] Anion gap [Moles/Vol] 10 mmol/L Normal 9-18 [facility] Comment on above: Order Comment: Speci men Type: BLOOD SPECIMEN Ordering Facility: [facility] Address: [address] [place] [address] Performed By: #### 2 4323-8, 3016-3 #### [facility] CLIA [id number] [address] [place] [address] [place] AST With P-5'-P [Catalytic activity/Vol] 18 U/L Normal 14-40 [facility] Comment on above: Order Comment: Speci men Type: BLOOD SPECIMEN Ordering Facility: [facility] Address: [address] [place] [address] Performed By: #### 2 4323-8, 3016-3 #### [facility] CLIA [id number] [address] [place] [address] [place] Bilirubin [Mass/Vol] 0.5 mg/dL Normal 0.2-1.3 [facility] Comment on above: Order Comment: Speci men Type: BLOOD SPECIMEN Ordering Facility: [facility] Address: [address] [place] [address] Performed By: #### 2 4323-8, 3016-3 #### [facility] CLIA [id number] [address] [place] [address] [place] Calcium [Mass/Vol] 9.6 mg/dL Normal 8.5-10.2 [facility] Comment on above: Order Comment: Speci men Type: BLOOD SPECIMEN Ordering Facility: [facility] Address: [address] [place] [address] Performed By: #### 2 4323-8, 6-3 #### [facility] CLIA [id number] [address] [place] [address] [place] Chloride [Moles/Vol] 104 mmol/L Normal 97-105 [facility] Comment on above: Order Comment: Speci men Type: BLOOD SPECIMEN Ordering Facility: [facility] Address: [address] [place] [address] Performed By: #### 2 4323-8, 6-3 #### [facility] CLIA [id number] [address] [place] [address] [place] CO2 [Moles/Vol] 27 mmol/L Normal 22-30 [facility] Comment on above: Order Comment: Speci men Type: BLOOD SPECIMEN Ordering Facility: [facility] Address: [address] [place] [address] Performed By: #### 2 4323-8, 6-3 #### [facility] CLIA [id number] [address] [place] [address] [place] Creatinine [Mass/Vol] 0.71 mg/dL Low 0.73-1.22 [facility] Comment on above: Order Comment: Speci men Type: BLOOD SPECIMEN Ordering Facility: [facility] Address: [address] [place] [address] Performed By: #### 2 4323-8, 6-3 #### [facility] CLIA [id number] [address] [place] [address] [facility] [place] Creatinine and Glomerular filtration rate.predicted panel (S/P/Bld) 136 mL/min/1.73m??? Normal >=60 [facility] Comment on above: Order Comment: Speci men Type: BLOOD SPECIMEN Ordering Facility: [facility] Address: [address] [place] [address] Result Comment: [place] mated Glomerular Filtration Rate (eGFR) is calculated using the 2020 CKD-EPI creatinine equation. This equation utilizes serum creatinine, sex, and age as parameters. The creatinine assay has traceable calibration to isotope dilution-mass spectrometry. Refer to KDIGO guidelines for clinical interpretation. In patients with unstable renal function, e.g. those with acute kidney injury, the eGFR may not accurately reflect actual GFR. Performed By: #### 2 4323-8, 6-3 #### [facility] CLIA [id number] [address] [place] [address] [place] Glucose [Mass/Vol] 95 mg/dL Normal 74-99 [facility] Comment on above: Order Comment: Paige ramires Type: BLOOD SPECIMEN Ordering Facility: [facility] Address: [address] [place] [address] Result Comment: The [place] Diabetes Association (ADA) provides guidance for cutoff values for fasting glucose and random glucose. The ADA defines fasting as no caloric intake for at least 8 hours. Fasting plasma glucose results between 100 to 125 mg/dL indicate increased risk for diabetes (prediabetes). Fasting plasma glucose results greater than or equal to 126 mg/dL meet the criteria for diagnosis of diabetes. In the absence of unequivocal hyperglycemia, results should be confirmed by repeat testing. In a patient with classic symptoms of hyperglycemia or hyperglycemic crisis, random plasma glucose results greater than or equal to 200 mg/dL meet the criteria for diagnosis of diabetes. Reference: Standards of Medical Care in Diabetes 2016, [place] Diabetes Association. Diabetes Care. 2016.39(Suppl 1). Performed By: #### 2 4323-8, 3015-3 #### [facility] CLIA [id number] [address] [place] [address] [place] Potassium [Moles/Vol] 4.0 mmol/L Normal 3.7-5.1 [facility] Comment on above: Order Comment: Paige ramires Type: BLOOD SPECIMEN Ordering Facility: [facility] Address: [address] [place] [address] Performed By: #### 2 4323-8, 6-3 #### [facility] CLIA [id number] [address] [place] [address] [place] Protein [Mass/Vol] 6.9 g/dL Normal 6.3-8.0 [facility] Comment on above: Order Comment: Paige ramires Type: BLOOD SPECIMEN Ordering Facility: [facility] Address: [address] [place] [address] Performed By: #### 2 4323-8, 3016-3 #### [facility] CLIA [id number] [address] [place] [address] [place] Sodium [Moles/Vol] 141 mmol/L Normal 136-144 [facility] Comment on above: Order Comment: Paige ramires Type: BLOOD SPECIMEN Ordering Facility: [facility] Address: [address] [place] [address] Performed By: #### 2 4323-8, 3016-3 #### [facility] CLIA [id number] [address] [place] [address] [place] [facility] Urea nitrogen [Mass/Vol] 16 mg/dL Normal 9-24 [facility] Comment on above: Order Comment: Paige ramires Type: BLOOD SPECIMEN Ordering Facility: [facility] Address: [address] [place] [address] Performed By: #### 2 4323-8, 3016-3 #### [facility] CLIA [id number] [address] [place] [address] [facility] [place] THYROID STIMULATING HORMONEo n 11-14-2023 TSH Qn 2.080 m[IU]/L 0.510 - 4.300 mIU/L [facility] TSH SerPl-aCncon 11-14-2023 TSH Qn 2.080 m[IU]/L Normal 0.510-4.300 [facility] Comment on above: Order Comment: Paige ramires Type: BLOOD SPECIMENOrdering Facility: [facility] Address: [address] [place] [address] Result Comment: Refe rence ranges were not locally established for this patient's age group. The normal values are based on the following source: Miracle W, Jules V. Reference Ranges for Adults and Children: Pre-analytical Considerations. [employer] Performed By: #### 2 4323-8, 3016-3 ####[facility]CLIA [id number] [place] [address] [place] VITAMIN D 25 HYDROXYon 11-13 25-hydroxyvitamin D3 [Mass/Vol] 21.4 ng/mL Low >=30.0 ng/mL [facility] Progress Noteon 08-24-2023 [employer] Authentication Interface Message Text We had the pleasure of seeing Chacha Mendez II in the Heart Center at [facility] on August 24, 2023. As you know, Chacha is a 17 y.o. male seen in evaluation for palpitations. He reports an episode of palpitations 5 days ago following drinking an energy drink. 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 He then experienced another episode of palpitations 1 day ago at night with a reported heart rate of approximately 90 beats per minute. There has been no chest pain, shortness of breath, or syncope. Past medical history was reviewed and negative for chronic illness. Current medications are a mutivitamin and beet supplement. There are no known allergies. On review of systems, 10 of 14 systems were reviewed and were negative other than noted above. Family history was reviewed and is significant for Wgwif-Upsrhfbfl-Oaysh syndrome in Chacha's mother. There is no history of congenital heart disease, premature coronary artery disease, or sudden . 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 Physical exam showed: Vitals: Weight - Scale: 63 kg, 28 %ile (Z= -0.58) based on CDC (Boys, 2-20 Years) [id number] data using vitals from 08/24/2023. Height: 172 cm, 26 %ile (Z= -0.64) based on CDC (Boys, 2-20 Years) Vrgthth-[id number] data based on Stature recorded on 08/24/2023. Heart rate was 89 beats per minute, respiratory rate was 18 breaths per minute, and blood pressure was 137/82 mmHg (anxious). In general, Chacha is acyanotic, well developed, well nourished, and in no acute distress. HEENT exam revealed that mucous membranes are moist. There is no thyromegaly or cervical lymphadenopathy. Respirations are comfortable. There is no use of accessory muscles. There are no retractions. Auscultation reveals good air movement bilaterally without wheezes, rales, or rhonchi. On palpation of the precordium, there are no lifts, heaves, or thrills. Auscultation reveals regular rate and rhythm with a normal S1 and physiologically split S2. There is no ejection click. There is no murmur, gallop, or rub. Radial and posterior tibial pulses are 2+, with no delay. Abdomen is soft, non-tender, and non-distended. There is no abdominal bruit. Liver is not palpable. Spleen is not palpable. Extremity exam reveals no cyanosis, clubbing, or edema. Extremities are warm and well perfused. Neurologicexam is grossly intact. There are no rashes or bruises on skin exam. A 12-lead ECG performed today that I personally reviewed demonstrated an ectopic atrial rhythm and a ventricular rate of 84, NV interval of 141 msec, QRS duration of 99 msec, QTc of 417 msec, QRS axis of +92 degrees, no atrial enlargement, no ventricular hypertrophy, and no ST/T changes. DIAGNOSES: Palpitations. A. Benign ECG. ASSESSMENT: Chacha is a 17 y.o. male with palpitations and a benign ECG. We will work to capture his symptoms on cardiac event monitor. RECOMMENDATIONS: 1. Continue primary medical care as directed. 2. No cardiac medications recommended. SBE prophylaxis is not indicated. 3. No activity restrictions from a cardiovascular perspective. 4. No restrictions or special requirements for anesthesia from a cardiovascular perspective. 5. No scheduled cardiology follow-up is required. We [facility] and arrange additional follow-up as needed. Total encounter time was 30 minutes, which includes chart review, counseling, documentation and/or coordination of care. Normal Absolute lymphocyte countOrd ered By: Uli Bond on 08-22-2023 Lymphocytes Auto (Unsp spec) [#/Vol] 2.96 10*3/uL 0.83-4.51 [facility] Automated lymphocyte count a s percentage of total leukocytesOrdered By: Uli Bond on 08-22-2023 Lymphocytes/100 WBC Auto (Unsp spec) 27.6 % 25-45 [facility] Basic Metabolic Profile (BMP )on 08-22-2023 BUN/CRE 14.9 RATIO Normal 10-20 [facility] Comment on above: Order Comment: 'TROP ' Serial specimen #1, #2 or #3: 1 Performed By: #### L 500.2500, L501.4020, L100.0100 #### [facility] [address] [place], [address] CA,Total 9.8 mg/dL Normal 8.5-10.1 [facility] Comment on above: Order Comment: 'TROP ' Serial specimen #1, #2 or #3: 1 Performed By: #### L 500.2500, L501.4020, L100.0100 #### [facility] [address] [place], [address] Chloride [Moles/Vol] 105 mmol/L Normal 98-107 [facility] Comment on above: Order Comment: 'TROP ' Serial specimen #1, #2 or #3: 1 Performed By: #### L 500.2500, L501.4020, L100.0100 #### [facility] [address] [place], [address] CO2 [Moles/Vol] 25.0 mmol/L Normal 21.0-32.0 [facility] Comment on above: Order Comment: 'TROP ' Serial specimen #1, #2 or #3: 1 Performed By: #### L 500.2500, L501.4020, L100.0100 #### [facility] [address] [place], [address] Creatinine [Mass/Vol] 0.87 mg/dL Normal 0.70-1.30 [facility] Comment on above: Order Comment: 'TROP ' Serial specimen #1, #2 or #3: 1 Result Comment: The validity of the calculated GFR GFRAA in patients over 70 years has not been determined. Clinical correlation is essential. Performed By: #### L 500.2500, L501.4020, L100.0100 #### [facility] [address] [place], [address] ECRCL 126.33 ml/min Normal [facility] Comment on above: Order Comment: 'TROP ' Serial specimen #1, #2 or #3: 1 Performed By: #### L 500.2500, L501.4020, L100.0100 #### [facility] [address] [place], [address] EST GFR - AA 145 mL/min Normal >60 [facility] Comment on above: Order Comment: 'TROP ' Serial specimen #1, #2 or #3: 1 Result Comment: Afri can Luxem[place] GFR Calc Performed By: #### L 500.2500, L501.4020, L100.0100 #### [facility] [address] [place], [address] GAP 10 Normal 5-15 [facility] Comment on above: Order Comment: 'TROP ' Serial specimen #1, #2 or #3: 1 Performed By: #### L 500.2500, L501.4020, L100.0100 #### [facility] [address] [place], [address] GFR/1.73 sq M.predicted among non-blacks MDRD (S/P/Bld) [Vol rate/Area] 120 mL/min/{1.73_m2} Normal >60 [facility] Comment on above: Order Comment: 'TROP ' Serial specimen #1, #2 or #3: 1 Result Comment: Non- GFR Calc Performed By: #### L 500.2500, L501.4020, L100.0100 #### [facility] [address] [place], [address] Glucose [Mass/Vol] 111 mg/dL High 74-106 [facility] Comment on above: Order Comment: 'TROP ' Serial specimen #1, #2 or #3: 1 Result Comment: Fast ing Glucose result from 100 to 125 mg/dL suggests IMPAIRED HOMEOSTASIS per A.D.A. criteria. Performed By: #### L 500.2500, L501.4020, L100.0100 #### [facility] [address] [place], [address] Potassium [Moles/Vol] 3.1 mmol/L Low 3.5-5.1 [facility] Comment on above: Order Comment: 'TROP ' Serial specimen #1, #2 or #3: 1 Performed By: #### L 500.2500, L501.4020, L100.0100 #### [facility] [address] [place], [address] Sodium [Moles/Vol] 140 mmol/L Normal 136-145 [facility] Comment on above: Order Comment: 'TROP ' Serial specimen #1, #2 or #3: 1 Performed By: #### L 500.2500, L501.4020, L100.0100 #### [facility] [address] [place], [address] Urea nitrogen [Mass/Vol] 13 mg/dL Normal 7-18 [facility] Comment on above: Order Comment: 'TROP ' Serial specimen #1, #2 or #3: 1 Performed By: #### L 500.2500, L501.4020, L100.0100 #### [facility] [address] [place], [address] Basophil percentageOrdered B y: Uli Bond on 08-22-2023 Basophils/100 WBC (Bld) 0.7 % 0-1 [facility] Chloride [Moles/Vol] 105 mmol/L 98-107 [facility] Eosinophils/100 WBC (Bld) 2.0 % 0-3 [facility] Glucose [Mass/Vol] 111 mg/dL 74-106 [facility] Comment on above: Fasting Glucose resu lt from 100 to 125 mg/dL suggests IMPAIRED HOMEOSTASIS per A.D.A. criteria. Hemoglobin (Bld) [Mass/Vol] 15.7 g/dL 13.0-16.5 [facility] Monocytes/100 WBC (Bld) 4.4 % 3-6 [facility] Neutrophils (Bld) [#/Vol] 7.0 10*3/uL 2.0-7.7 [facility] Neutrophils/100 WBC (Bld) 65.0 % 34-64 [facility] Potassium [Moles/Vol] 3.1 mmol/L 3.5-5.1 [facility] Sodium [Moles/Vol] 140 mmol/L 136-145 [facility] WBC (Bld) [#/Vol] 10.7 10*3/uL 4.5-13.0 [facility] CBC W/Diff, Automatedon 08-02 Absolute Lymph 2.96 X10 3/uL Normal 0.83-4.51 [facility] Comment on above: Performed By: #### L 500.2500, L501.4020, L100.0100 #### [facility] [address] [place], [address] Absolute Neut 7.0 X10 3/uL Normal 2.0-7.7 [facility] Comment on above: Performed By: #### L 500.2500, L501.4020, L100.0100 #### [facility] [address] [place], [address] Basophils/100 WBC (Bld) 0.7 % Normal 0-1 [facility] Comment on above: Performed By: #### L 500.2500, L501.4020, L100.0100 #### [facility] [address] [place], [address] Eosinophils/100 WBC (Bld) 2.0 % Normal 0-3 [facility] Comment on above: Performed By: #### L 500.2500, L501.4020, L100.0100 #### [facility] [address] [place], [address] Erythrocyte distribution width (RBC) [Ratio] 11.8 % Normal 11.6-14.6 [facility] Comment on above: Performed By: #### L 500.2500, L501.4020, L100.0100 #### [facility] [address] [place], [address] Hematocrit (Bld) [Volume fraction] 45.7 % Normal 36-47 [facility] Comment on above: Performed By: #### L 500.2500, L501.4020, L100.0100 #### [facility] [address] [place], [address] Hemoglobin (Bld) [Mass/Vol] 15.7 g/dL Normal 13.0-16.5 [facility] Comment on above: Performed By: #### L 500.2500, L501.4020, L100.0100 #### [facility] [address] [place], [address] IG% 0.300 Normal 0.0-0.9 [facility] Comment on above: Result Comment: IG% - Immature Granulocytes (promyelocytes, myelocytes and metamyelocytes) > 1% indicates that a LEFT SHIFT is Present. Performed By: #### L 500.2500, L501.4020, L100.0100 #### [facility] [address] [place], [address] Lymphocytes/100 WBC (Bld) 27.6 % Normal 25-45 [facility] Comment on above: Performed By: #### L 500.2500, L501.4020, L100.0100 #### [facility] [address] [place], [address] MCH (RBC) [Entitic mass] 31.5 pg Normal 25.0-35.0 [facility] Comment on above: Performed By: #### L 500.2500, L501.4020, L100.0100 #### [facility] [address] [place], [address] MCHC (RBC) [Mass/Vol] 34.4 g/dL Normal 32-36 [facility] Comment on above: Performed By: #### L 500.2500, L501.4020, L100.0100 #### [facility] [address] [place], [address] MCV (RBC) [Entitic vol] 91.6 fL Normal 78-96 [facility] Comment on above: Performed By: #### L 500.2500, L501.4020, L100.0100 #### [facility] [address] [place], [address] Monocytes/100 WBC (Bld) 4.4 % Normal 3-6 [facility] Comment on above: Performed By: #### L 500.2500, L501.4020, L100.0100 #### [facility] [address] [place], [address] Neutrophils/100 WBC (Bld) 65.0 % High 34-64 [facility] Comment on above: Performed By: #### L 500.2500, L501.4020, L100.0100 #### [facility] [address] [place], [address] Nucleated RBC (Bld) [#/Vol] 0 10*3/uL Normal 0-5 [facility] Comment on above: Performed By: #### L 500.2500, L501.4020, L100.0100 #### [facility] [address] [place], [address] Platelet mean volume (Bld) [Entitic vol] 9.4 fL Normal 6.2-12.0 [facility] Comment on above: Performed By: #### L 500.2500, L501.4020, L100.0100 #### [facility] [address] [place], [address] Platelets (Bld) [#/Vol] 310 10*3/uL Normal 150-450 [facility] Comment on above: Performed By: #### L 500.2500, L501.4020, L100.0100 #### [facility] [address] [place], [address] RBC (Bld) [#/Vol] 4.99 10*6/uL Normal 4.5-5.1 [facility] Comment on above: Performed By: #### L 500.2500, L501.4020, L100.0100 #### [facility] [address] [place], [address] RDW SD 39.5 fl Normal 35.1-43.9 [facility] Comment on above: Performed By: #### L 500.2500, L501.4020, L100.0100 #### [facility] [address] [place], [address] WBC (Bld) [#/Vol] 10.7 10*3/uL Normal 4.5-13.0 [facility] Comment on above: Performed By: #### L 500.2500, L501.4020, L100.0100 #### [facility] [address] [place], [address] Chest PA and Lateralon 08-22 Chest PA and Lateral [facility] [address] [place] [address] Chest PA and Lateral MR#: [id number] Acct: [id number] Name: CHACHA MENDEZ Rep #: [id number] : 2005 M 17 From: Julieth Monroy PCP: Care Physician,No Primary Status: [facility] ER Study: Chest PA and Lateral Date of Exam: 08/22/23 Exam# [id number] Ordering Dr: Uli Bond DO [id number] INDICATION: Dyspnea EXAMINATION/TECHNIQUE : X-RAY - XR Chest 2 Views COMPARISON: None. __ FINDINGS: LINES/DEVICES: None. LUNGS: No consolidation. No pneumothorax. MEDIASTINUM: Unremarkable. CARDIAC SILHOUETTE: Not enlarged. BONES AND SOFT TISSUES: No acute abnormalities. __ RAD/Chest PA and Lateral IMPRESSION: No evidence of active intrathoracic disease. Electronically Signed: Julieth Moffett MD at 22:18 EST , CC: Dr. Uli Bond, DO; No Primary Care Physician Family Resource Specialist: Signed Normal [facility] Determination of erythrocyte mean corpuscular volume (MCV)Ordered By: Uli Bond on 08-22-2023 MCV (RBC) [Entitic vol] 91.6 fL 78-96 [facility] Emergency Department Summary on 08-22-2023 Emergency Department Summary [facility] Medical Records Department [address] [place] [address] Emergency Department Summary 08/22/23 MR#: [id number] Acct: [id number] Name: CHACHA MENDEZ Rep #: [id number] : 2005 17 From: Uli Bond DO PCP: Care Physician,No Primary Status:DEP ER Location: ED HPI History of Present Illness Chief Complaint: Palpitations Informant: patient Onset/Context/Timing Onset: Days (3) Context: Gradual Onset Timing: Intermittent Quality: Tingling Location: Fingertips Worsened by: Nothing Relieved by: Nothing Associated Symptoms Associated Symptoms: Shortness of breath Narrative Narrative: Patient presents with palpitations that has been intermittent over the last 3 days. Patient states he drank an energy drink 2 days ago and felt like his heart was racing. Patient states it has been intermittent over the past 3 days. Patient states he feels his heart beating fast. Patient states he also feels some tingling into his fingertips. Patient states that tonight he was at work when he felt some palpitations. Patient states he took his blood pressure was 164/97 and his heart rate was 77. Patient states nothing seems to make his symptoms any better and nothing makes them worse. Patient admits to occasional shortness of breath when his heart is racing. PFSH PFSH Medical History no medical history no medical history Allergy/AdvReac Type Severity Reaction Status Date / Time No Known Allergies Allergy Verified 08/22/23 21:17 Surgical History no surgical history no surgical history Social History Smoking Status: Former smoker ROS ROS ED Constitutional Constitutional ED: Denies chills or fever(s) Eyes Eyes: Denies blurry vision or change in vision ENT ENT ED: Denies rhinorrhea or sore throat Cardiovascular Cardiovascular: Denies chest pain or palpitations Respiratory/Chest Respiratory/Chest: Reports dyspnea; Denies cough Gastrointestinal Gastrointestinal: Denies nausea or vomiting Genitourinary Genitourinary ED: Denies dysuria or hematuria Musculoskeletal Musculoskeletal: Denies back pain or neck pain Integumentary Denies abscess or rash Neurologic Neurologic: Denies headache(s) or weakness Allergic/Immunologic Allergic/Immunologic ED: Denies mouth swelling or urticaria EXAM Physical Exam Const Vital Signs: 08/22/23 21:15 08/22/23 21:29 Temperature 97.8 F Temperature Source Temporal Pulse Rate 78 94 Respiratory Rate 16 Blood Pressure 152/85 H Blood Pressure Mean 107 Pulse Ox 98 Oxygen Delivery Method Room Air Positive well nourished and well developed General Appearance ED: well developed and NAD HEENT Reports moist mucous membranes Neck supple and no JVD Chest Wall inspection of chest normal and palpation of chest normal Resp normal respiratory effort and clear to auscultation bilaterally Cardio regular rate and regular rhythm GI non-tender and non-distended Palpation: soft Extremity normal to inspection General Extremety ED: Negative for edema or tenderness General Extremity: Negative for edema Neuro oriented x3, CN's II-XII intact bilaterally and no sensory deficits noted Sensorium / Orientation: alert Motor Exam: strength 5/5 throughout Psych mental status grossly normal MDM MDM MDM Narrative Medical decision making narrative: Differential diagnosis includes cardiac dysrhythmia, anxiety, electrolyte abnormality, and stimulant use. EKG will be obtained to assess for cardiac dysrhythmia and cardiac ischemia. Chest x-ray will be obtained to assess for pneumonia and pneumothorax. CBC will be obtained to assess for leukocytosis and anemia. Basic metabolic profile will be obtained to assess for electrolyte abnormality and renal function. High-sensitivity troponin will be obtained to assess for cardiac ischemia. Lab Data Attestation: I reviewed the patient's lab results. Lab results narrative: CBC was reviewed and was within normal limits. Basic metabolic profile was reviewed. Potassium was slightly low at 3.1. The remainder was within normal limits. High-sensitivity troponin was reviewed and was normal at 6. Labs: Laboratory Results - last 24 hr 08/22/23 21:44 WBC 10.7 RBC 4.99 Hgb 15.7 Hct 45.7 MCV 91.6 MCH 31.5 MCHC 34.4 RDW Std Deviation 39.5 RDW Coeff of Lucia 11.8 Plt Count 310 MPV 9.4 Immature Gran % (Auto) 0.300 Neut % (Auto) 65.0 H Lymph % (Auto) 27.6 [place] % (Auto) 4.4 Eos % (Auto) 2.0 Baso % (Auto) 0.7 Absolute Neuts (auto) 7.0 Absolute Lymphs (auto) 2.96 Nucleated RBC % 0 Sodium 140 Potassium 3.1 L Chloride 105 Carbon Dioxide 25.0 Anion Gap 10 BUN 13 Creatinine 0.87 (more content not included)... Normal [facility] Erythrocyte distribution wid th ratioOrdered By: Uli Bond on 08-22-2023 Erythrocyte distribution width (RBC) [Ratio] 11.8 % 11.6-14.6 [facility] Erythrocyte distribution wid th standard deviationOrdered By: Uli Bond on 08-22-2023 Erythrocyte distribution width (RBC) [Entitic vol] 39.5 fL 35.1-43.9 [facility] Hematocrit Auto (Bld) [Volum e fraction]Ordered By: Uli Bond on 08-22-2023 Hematocrit (Bld) [Volume fraction] 45.7 % 36-47 [facility] Immature granulocytes/100 WB C Auto (Bld)Ordered By: Uli Bond on 01-22-2024 Immature granulocytes/100 WBC (Bld) 0.300 % 0.0-0.9 [facility] Comment on above: IG% - Immature Granu locytes (promyelocytes, myelocytes and metamyelocytes) > 1% indicates that a LEFT SHIFT is Present. L501.4020on 08-22-2023 TROPONIN-I HS 6 pg/mL Normal 3.0-78.0 [facility] Comment on above: Order Comment: 'TROP ' Serial specimen #1, #2 or #3: 1 Result Comment: Marychuy valerio Note: New Test Units and Gender Specific Reference Ranges. For more information see Policy Stat Procedure [place] High Sensitivity Troponin (TNIH) and attachments. Performed By: #### L 500.2500, L501.4020, L100.0100 #### [facility] [address] [place], [address] Laboratory - Chemistry and C hemistry - challengeOrdered By: Uli Bond on 08-22-2023 CO2 [Moles/Vol] 25.0 mmol/L 21.0-32.0 [facility] Urea nitrogen/Creatinine [Mass ratio] 14.9 mg/mg 10-20 [facility] - Hematology and Cell countsOrdered By: Uli Bond on 08-22-2023 MCH (RBC) [Entitic mass] 31.5 pg 25.0-35.0 [facility] MCHC (RBC) [Mass/Vol] 34.4 g/dL 32-36 [facility] Nucleated RBC/100 WBC (Bld) [Ratio] 0 % 0-5 [facility] Platelets (Bld) [#/Vol] 310 10*3/uL 150-450 [facility] No Panel InformationOrdered By: Uli Bond on 08-22-2023 Estimated Creatinine Clearance Calc 126.33 ml/min [facility] Estimated GFR (MDRD) Amer 145 mL/min >60 [facility] Comment on above: GFR Calc Estimated GFR (MDRD) Non-Af Amer 120 mL/min >60 [facility] Comment on above: Non- GFR Calc Troponin I High Sensitivity 6 pg/mL 3.0-78.0 [facility] Comment on above: Please Note: New Daria t Units and Gender Specific Reference Ranges. For more information see Policy Stat Procedure [place] High Sensitivity Troponin (TNIH) and attachments. Platelet mean volume Eben-Ec ker (Bld) [Entitic vol]Ordered By: Uli Bond on 08-22-2023 Platelet mean volume (Bld) [Entitic vol] 9.4 fL 6.2-12.0 [facility] RBC Auto (Bld) [#/Vol]Ordere d By: Uli Bond on 08-22-2023 RBC (Bld) [#/Vol] 4.99 10*6/uL 4.5-5.1 [facility] Serum or plasma calcium tita urement (mass/volume)Ordered By: Uli Bond on 08-22-2023 Calcium [Mass/Vol] 9.8 mg/dL 8.5-10.1 [facility] Serum or plasma creatinine m easurement (mass/volume)Ordered By: Uli Bond on 08-22-2023 Creatinine [Mass/Vol] 0.87 mg/dL 0.70-1.30 [facility] Comment on above: The validity of the calculated GFR & GFRAA in patients over 70 years has not been determined. Clinical correlation is essential. Serum or plasma urea nitroge n measurement (mass/volume)Ordered By: Uli Bond on 08-22-2023 Urea nitrogen [Mass/Vol] 13 mg/dL 7-18 [facility] Thin prep Papanicolaou smear with manual screeningOrdered By: Uli Bond on 08-22-2023 Thin prep Papanicolaou smear with manual screening 10 5-15 [facility] Vital Signs Date Time Vital Sign Value Performing Clinician Facility 04-29-2024 04:06-0400 Diastolic blood pressure 56 mm[Hg] Osito Maguire MD Work Phone: [facility] 04-29-2024 04:06-0400 Heart rate 74 /min Osito Maguire MD Work Phone: [facility] 04-29-2024 04:06-0400 Respiratory rate 17 /min Osito Maguire MD Work Phone: [facility] 04-29-2024 04:06-0400 SaO2% (BldA) [Mass fraction] 97 % Osito Maguire MD Work Phone: [facility] 04-29-2024 04:06-0400 Systolic blood pressure 97 mm[Hg] Osito Maguire MD Work Phone: [facility] 04-29-2024 01:49-0400 Body temperature 98.1 [degF] Osito Maguire MD Work Phone: [facility] 03-05-2024 01:24-0400 Blood Pressure Cuff Size MANDO GOODEN DO [facility] 03-05-2024 01:24-0400 Blood Pressure Location MANDO GOODEN DO [facility] 03-05-2024 01:24-0400 Blood Pressure Method MANDO GOODEN DO [facility] 03-05-2024 01:24-0400 Body height 172.7 cm MANDO GOODEN DO [facility] 03-05-2024 01:24-0400 Body temperature 98.78 [degF] MANDO GOODEN DO [facility] 03-05-2024 01:24-0400 Body weight 68.2 kg MANDO GOODEN DO [facility] 03-05-2024 01:24-0400 Diastolic Blood Pressure Non-Invasive 58 mm[Hg] MANDO GOODEN DO [facility] 03-05-2024 01:24-0400 Heart rate 68 /min MANDO GOODEN DO [facility] 03-05-2024 01:24-0400 Height ZScore -0.56 1 MANDO GOODEN DO [facility] Comment on above: Result Comment: ^~:!ZScore Source -[facility] 03-05-2024 01:24-0400 Percent Height for Age 28.73 % MANDO GOODEN DO [facility] Comment on above: Result Comment: ^~:!Percentile Source -[facility] 03-05-2024 01:24-0400 Respiratory rate 18 /min MANDO GOODEN DO [facility] 03-05-2024 01:24-0400 Systolic Blood Pressure Non-Invasive 134 mm[Hg] MANDO GOODEN DO [facility] 02-10-2024 14:05-0400 Body height 172.1 cm Alba Queden [employer] Work Phone: [facility] 02-10-2024 14:05-0400 Body mass index (BMI) [Ratio] 22.52 kg/m2 Alba Queden [employer] Work Phone: [facility] 02-10-2024 14:05-0400 Body temperature 98.01 [degF] Alba Queden [employer] Work Phone: [facility] 02-10-2024 14:05-0400 Body weight 66.68 kg Alba Queden [employer] Work Phone: [facility] 02-10-2024 14:05-0400 Diastolic blood pressure 62 mm[Hg] Alba Queden [employer] Work Phone: [facility] 02-10-2024 14:05-0400 Heart rate 60 /min Alba Queden [employer] Work Phone: [facility] 02-10-2024 14:05-0400 Respiratory rate 18 /min Alba Queden [employer] Work Phone: [facility] 02-10-2024 14:05-0400 SaO2% (BldA) [Mass fraction] 98 % Alba Queden [employer] Work Phone: [facility] 02-10-2024 14:05-0400 Systolic blood pressure 106 mm[Hg] Alba Queden [employer] Work Phone: [facility] 11-14-2023 09:49-0400 Body height 172.1 cm Alba Queden [employer] Work Phone: [facility] 11-14-2023 09:49-0400 Body temperature 97.59 [degF] Alba Queden [employer] Work Phone: [facility] 11-14-2023 09:49-0400 Body weight 69.4 kg Alba Queden [employer] Work Phone: [facility] 11-14-2023 09:49-0400 Diastolic blood pressure 58 mm[Hg] Alba Queden [employer] Work Phone: [facility] 11-14-2023 09:49-0400 Heart rate 62 /min Alba Queden [employer] Work Phone: [facility] 11-14-2023 09:49-0400 Respiratory rate 16 /min Alba Queden [employer] Work Phone: [facility] 11-14-2023 09:49-0400 SaO2% (BldA) [Mass fraction] 98 % Alba Queden [employer] Work Phone: [facility] 11-14-2023 09:49-0400 Systolic blood pressure 110 mm[Hg] Alba Queden [employer] Work Phone: [facility] 08-30-2023 19:11-0500 Body height 172.[address] ANGELINE ALAS MD [facility] 08-30-2023 19:11-0500 Body temperature 96.98 [degF] DR ANGELINE ALAS MD [facility] 08-30-2023 19:11-0500 Body weight 65.[address] NAGELINE ALAS MD [facility] 08-30-2023 19:11-0500 Diastolic Blood Pressure Non-Invasive 84 mm[Hg] DR ANGELINE ALAS MD [facility] 08-30-2023 19:11-0500 Heart rate 94 /min DR ANGELINE ALAS MD [facility] 08-30-2023 19:11-0500 Height ZScore -0.[address] ANGELINE ALAS MD [facility] Comment on above: Result Comment: ^~:!ZScore Source -[facility] 08-30-2023 19:11-0500 Percent Height for Age 29.46 % DR ANGELINE ALAS MD [facility] Comment on above: Result Comment: ^~:!Percentile Source -[facility] 08-30-2023 19:11-0500 Respiratory rate 16 /min DR ANGELINE ALAS MD [facility] 08-30-2023 19:11-0500 Systolic Blood Pressure Non-Invasive 148 mm[Hg] DR ANGELINE ALAS MD [facility] 08-22-2023 22:45-0500 Body temperature 97.9 [degF] [facility] 08-22-2023 22:45-0500 Diastolic blood pressure 54 mm[Hg] [facility] 08-22-2023 22:45-0500 Heart rate 61 /min [facility] 08-22-2023 22:45-0500 Respiratory rate 18 /min [facility] 08-22-2023 22:45-0500 SaO2% (BldA) [Mass fraction] 97 % [facility] 08-22-2023 22:45-0500 Systolic blood pressure 103 mm[Hg] [facility] 08-22-2023 21:15-0500 Body height 175.26 cm [facility] 08-22-2023 21:15-0500 Body mass index (BMI) [Percentile] Per age and sex 31.9 % [facility] 08-22-2023 21:15-0500 Body mass index (BMI) [Ratio] 21.1 kg/m2 [facility] 08-22-2023 21:15-0500 Body weight 64.86 kg [facility] Encounters Encounter Date Encounter Type Care Provider Facility Start: 05-07-2024 End: 05-08-2024 Refill Alba A Queden [employer] Work Phone: [facility] Comment on above: Refill Request Start: 04-29-2024 End: 04-29-2024 Emergency department patient visit Osito Maguire MD Work Phone: [facility] Emergency Department Start: 04-03-2024 End: 04-03-2024 Refill Alba A Queden [employer] Work Phone: [facility] Comment on above: Refill Request Start: 03-08-2024 ambulatory Cherelle Jael [facility] Start: 03-05-2024 End: 03-05-2024 Emergency department patient visit MANDO GIACOMO ORTIZ [facility] Start: 03-04-2024 Refill Alba A Qued en [employer] Work Phone: [facility] Comment on above: Med Change Request Start: 02-16-2024 ambulatory Alba A Qued en [employer] Work Phone: [facility] Comment on above: Pain Start: 02-10-2024 End: 02-10-2024 Patient encounter procedure Alba A Queden [employer] Work Phone: [facility] Comment on above: Anxiety (Primary Dx) ; Palpitations; Upper back pain Start: 02-10-2024 End: 02-10-2024 ambulatory ALBA A QUEDEN Facility:[facility] Start: 02-06-2024 End: 02-07-2024 Emergency department patient visit Murray Gorman Facility:[facility] Start: 02-06-2024 ambulatory Alba A Qued en [employer] Work Phone: [facility] Comment on above: Symptoms Start: 02-03-2024 Telephone encounter Alba A Queden [employer] Work Phone: [facility] Comment on above: No Show (Pt no show for appt on 02/03/24) Start: 01-16-2024 Telephone encounter Alba A Queden [employer] Work Phone: [facility] Comment on above: Missed Appointment ( 1st no show in 365 days (1st letter sent)) Start: 12-11-2023 Refill Alba A Qued en [employer] Work Phone: [facility] Comment on above: Refill Request Start: 12-04-2023 ambulatory Alba A Qued en [employer] Work Phone: [facility] Comment on above: Question Start: 11-15-2023 ambulatory Alba A Qued en [employer] Work Phone: [facility] Comment on above: Lab Results Start: 11-14-2023 End: 11-14-2023 ambulatory ALBA A QUEDEN Facility:[facility] Start: 11-14-2023 End: 11-14-2023 ambulatory ALBA A QUEDEN Facility:[facility] Start: 11-14-2023 End: 11-14-2023 Patient encounter procedure Alba A Queden [employer] Work Phone: [facility] Comment on above: Anxiety (Primary Dx) ; Low energy Start: 08-31-2023 End: 08-31-[address] ANGELINE ALAS MD Facility:[facility] Start: 08-31-2023 End: 08-31-[address] ANGELINE ALAS MD [facility] Start: 08-30-2023 End: 08-30-2023 Emergency department patient visit DR ANGELINE ALAS MD [facility] Start: 08-24-2023 End: 08-24-2023 ambulatory DELIO VACA Start: 08-22-2023 End: 08-22-2023 Emergency department patient visit [facility] Work Phone: Procedures Date Procedure Procedure Detail Performing Clinician Start: 04-29-2024 Glucose measurement, blood Osito Maguire MD Work Phone: Start: 08-22-2023 Plain chest X-ray Plan of Treatment Date Care Activity Detail Author Start: 10-25-2028 Tetanus vaccination TETANUS U [facility] Start: 10-25-2028 Urine microalbumin profile DTaP,Tdap,Td Vaccine (6 - Td or Tdap) [facility] Start: 11-13-2024 Covid-19 Vaccine ( season) Covid-19 Vaccine () [facility] Comment on above: Postponed from 04/01 (Declined at this time) Start: 04-09-2024 End: 04-09-2024 Patient encounter procedure 04/09/2024 2:40 PM EDT Office [place] [id number] need to reinsure through the [facility] plan [employer] Comment on above: need to reinsure thr ough the [facility] plan Start: 04-01-2024 Covid-19 Vaccine ( season) Covid-19 Vaccine () [facility] Start: 04-01-2024 Covid-19 Vaccine () Covid-19 Vaccine () [facility] Start: 04-01-2024 Influenza vaccination C [facility] Start: 03-23-2024 End: 03-23-2024 Patient encounter procedure 03/23/2024 11:20 AM EDT Office Visit [address] [address] Alba Ken, [employer] [address] [place], [place] [id number] 6 week follow up [facility] Comment on above: 6 week follow up Start: 03-20-2024 End: 03-20-2024 ambulatory 03/20/2024 8:30 AM EDT OT/PT/Speech Visit [facility] [address] [place] [address] Andree Bowen, PT [address] [place] [address] upper back pain. [facility] Comment on above: upper back pain. Start: 02-10-2024 End: 02-10-2024 Patient encounter procedure 02/10/2024 2:20 PM EDT Office Visit [facility] [address] [place] [address] Alba Ken, [employer] [address] [place] [address] follow up on anxiety meds and other concerns. [facility] Comment on above: follow up on anxiety meds and other concerns. Start: 12-15-2023 End: 12-15-2023 Patient encounter procedure 12/15/2023 9:20 AM EDT Office Visit [facility] [address] [place] [address] Alba Ken, [employer] [address] [place] [address] 4 WK F/U Anxiety [facility] Comment on above: 4 WK F/U Anxiety Start: 08-22-2023 [facility] Start: 2022 Anxiety Screening Anxiety Screening [facility] Start: 2022 Depression Screening Depression Scre ening [facility] Start: 2022 Hepatitis C screening Hepatitis C Sc reening [facility] Start: 2022 HIV screening HIV Screening [facility] Start: 2020 Meningococcal B Vacc ine: Consider Based On Risk (1 of 2 - Patient Seeks Protection) Meningococcal B Vaccine: Consider Based On Risk (1 of 2 - Patient Seeks Protection) [facility] Start: 10-21-2019 HIV screening HIV SCREENING DISCUSSION [facility] Start: 2018 Peds To Adult Transi tion Annual Assessment Peds To Adult Transition Annual Assessment [facility] Start: 2016 Peds To Adult Transi tion Initial Discussion Peds To Adult Transition Initial Discussion [facility] Start: 2004 Hepatitis C screening HEPATITI S C VIRUS SCREENING [facility] End: 02-09-2025 HOLTER MONITOR 72 HOUR HOLTER MONITOR 72 HOUR Cardiology Routine Palpitations 1 Occurrences starting 02/10/2024 until 02/09/2025 [facility] Work Phone: Comment on above: 1 Occurrences starti ng 02/10/2024 until 02/09/2025 Patient Education ED Hypokalemia ED Palpitations [facility] Work Phone: Patient referral [facility] Work Phone: End: 04-01-2025 XR Thoracic spine AP and Lateral and Swimmers XR THORACIC GENERAL 3V AP/LAT/SWIMMERS Radiology Routine Upper back pain 1 Occurrences starting 03/02/2024 until 04/01/2025 [facility] Work Phone: Comment on above: 1 Occurrences starti ng 03/02/2024 until 04/01/[facility] Immunization Date Immunization Notes Care Provider Fred quiros 12-16-2020 hepatitis A vaccine, pediatric/adolescent dosage, 2 dose schedule Alba Ken APRN.CNP Work Phone: [facility] 12-16-2020 Human Papillomavirus 9-valent vaccine Alba Ken APRN.CNP Work Phone: [facility] 12-16-2020 meningococcal polysaccharide (groups A, C, Y and W-135) diphtheria toxoid conjugate vaccine (MCV4P) Alba Ken APRN.CNP Work Phone: [facility] 10-25-2018 hepatitis A vaccine, pediatric/adolescent dosage, 2 dose schedule Alba Ken [employer] Work Phone: [facility] 10-25-2018 Human Papillomavirus 9-valent vaccine Alba Ken [employer] Work Phone: [facility] 10-25-2018 meningococcal polysaccharide (groups A, C, Y and W-135) diphtheria toxoid conjugate vaccine (MCV4P) Alba Ken [employer] Work Phone: [facility] 10-25-2018 tetanus toxoid, redu monse diphtheria toxoid, and acellular pertussis vaccine, adsorbed Albaleonor Ken [employer] Work Phone: [facility] 03-23-2010 diphtheria, tetanus toxoids and acellular pertussis vaccine Alba Queden [employer] Work Phone: [facility] 03-23-2010 measles, mumps, rube lla, and varicella virus vaccine Alba Queden [employer] Work Phone: [facility] 03-23-2010 poliovirus vaccine, inactivated Alba Ken [employer] Work Phone: [facility] 06-24-2009 diphtheria, tetanus toxoids and acellular pertussis vaccine, unspecified formulation Alba Queden [employer] Work Phone: [facility] 06-24-2009 influenza virus vacc ine, whole virus Alba Ken [employer] Work Phone: [facility] 06-24-2009 novel Influenza-H1N1 -09, live virus for nasal administration Albaleonor Ken [employer] Work Phone: [facility] 06-24-2009 influenza virus vacc ine, unspecified formulation Alba Queden [employer] Work Phone: [facility] 08-05-2006 diphtheria, tetanus toxoids and acellular pertussis vaccine, unspecified formulation Alba Queden [employer] Work Phone: [facility] 08-05-2006 haemophilus influenz ae type b conjugate and Hepatitis B vaccine Alba Queden [employer] Work Phone: [facility] 08-05-2006 measles, mumps and rubella virus vaccine Alba Queden [employer] Work Phone: [facility] 08-05-2006 pneumococcal conjuga te vaccine, 7 valent Alba Queden [employer] Work Phone: [facility] 08-05-2006 poliovirus vaccine, inactivated Alba Queden [employer] Work Phone: [facility] 08-05-2006 varicella virus vaccine Brit tny Queden [employer] Work Phone: [facility] 06-15-2005 diphtheria, tetanus toxoids and acellular pertussis vaccine, unspecified formulation Alba Queden [employer] Work Phone: [facility] 06-15-2005 haemophilus influenz ae type b conjugate and Hepatitis B vaccine Alba Queden [employer] Work Phone: [facility] 06-15-2005 pneumococcal conjuga te vaccine, 7 valent Alba Queden [employer] Work Phone: [facility] 06-15-2005 poliovirus vaccine, inactivated Alba Queden [employer] Work Phone: [facility] 05-14-2005 diphtheria, tetanus toxoids and acellular pertussis vaccine, unspecified formulation Alba Queden [employer] Work Phone: [facility] 05-14-2005 haemophilus influenz ae type b conjugate and Hepatitis B vaccine Alba Queden [employer] Work Phone: [facility] 05-14-2005 pneumococcal conjuga te vaccine, 7 valent Alba Queden [employer] Work Phone: [facility] 05-14-2005 poliovirus vaccine, inactivated Alba Queden [employer] Work Phone: [facility] 05-07-2005 haemophilus influenz ae type b conjugate and Hepatitis B vaccine Alba Quemodesta [employer]AL[employer] Work Phone: [facility] Payers Date Payer Category Payer Unknown [id number] 2023 Unknown MATT GUTIERREZ HI X [id number] 2023-Present [phone] [address] [address] [place] [address] HMO [id number] 2023 Private Health Insurance MARCELA HERNÁNDEZ PPO [id number] 2023-Present [phone] [address] [place] [id number] PPO [id number] 2023 Private Health Insurance [id number] 2023 Private Health Insurance [id number] 2023 Self-pay 2004 Unknown [id number] 2004 Unknown [id number] 2004 Unknown [id number] 2004 Unknown [id number] Private Health Insurance [id number] Unknown [facility] [employer] [facility] [id number] Unknown [id number] Unknown [id number] Social History Date Type Detail Facility Start: [facility] Start: 2005 Sex Assigned At Male W [facility] Tobacco smoking status No Smokin g Status Entered [facility] Start: 11-14-2023 Tobacco smoking stat us NHIS Never smoked tobacco [facility] Start: 11-14-2023 Tobacco use and exposure Smokeless tobacco non-user [facility] Start: 11-14-2023 End: 02-10-2024 Alcohol intake Lifetime non-drinker (finding) [facility] Start: 11-14-2023 End: 02-10-2024 History of Social function [facility] Start: 11-14-2023 End: 02-10-2024 Tobacco use panel [facility] Adult Depression Screening Assessment 3 [facility] Start: 2004 Sex Assigned At Not on file C [facility] Functional Status Date Assessment Result Facility 03-05-2024 [facility] 08-30-2023 Functional Status Assistive Device None [facility] Mental Status Date Assessment Result Facility 03-05-2024 Mental Status Oriented x 4 [facility] 08-30-2023 [facility] 08-22-2023 Cognitive function Level Of Cons ciousness Awake;Alert;Appropriate;Follow s Commands [facility] Work Phone: Clinical Notes 08-30-2023 to 05-07-2024 Telephone Encounter - Adela Edwards MA - 05/07/2024 3:46 PM EDTTelephone Encounter - Adela Edwards MA - 05/07/2024 3:46 PM EDTDischarge InstructionsAttachSusi Goode RN - 04/29/2024 1:29 AM EDT Note Date & Type Note Facility 05-07-2024 Telephone encounter Note pharm requesting refills: Last office visit 02/10/2024. Last refill 04/03/2024 nov none Requested Prescriptions Pending Prescriptions Disp Refills sertraline (ZOLOFT) 100 mg tablet 90 tablet 1 Sig: Take 1 tablet by mouth once daily. Please review and advise. Adela Edwards MA [facility] 05-07-2024 Miscellaneous Notes pharm requesting refills: Last office visit 02/10/2024. Last refill 04/03/2024 nov none Requested Prescriptions Pending Prescriptions Disp Refills sertraline (ZOLOFT) 100 mg tablet 90 tablet 1 Sig: Take 1 tablet by mouth once daily. Please review and advise. Adela Edwards MA documented in this encounter [facility] 04-29-2024 Hospital Discharg e natalie Zaidi MD - 04/29/2024 9:44 AM EDT You were seen in the [facility] ED overnight for alcohol intoxication which resolved on re-assessment this morning. Please review the information provided in your paperwork. Please follow up with your primary care provider at your earliest convenience. The following attachments cannot be sent through Care Everywhere.Alcohol Intoxication: Acute (Palestinian)documented in this encounter [facility] 04-29-2024 Physician Emergency department Note Sign-out Note Chacha Anguiano is a 18 y.o. male who presented to the ED w/ CC: Alcohol intoxication Received in sign-out from Dr. Rowe. Vitals: 04/29/24 0149 04/29/24 0406 BP: 136/75 97/56 Pulse: 87 74 Resp: 18 17 Temp: 98.1 degrees F (36.7 degrees C) TempSrc: Oral SpO2: 98% 97% Patient presented with the following: Alcohol intoxication Results for orders placed or performed during the hospital encounter of 04/29/24 GLUCOSE POC Result Value Ref Range Glucose (POC Device) 103 (H) 70 - 99 mg/dL POC Sample Type CAPBL No orders to display ED Course as of 04/29/24 0941 Sun Apr 29, 2024 0716 EtOH intox. On re-assessment patient is awake, alert, and oriented. States he is ready to discharge. No current acute medical concerns. Presentation likely secondary to alcohol intoxication which has now resolved. Plan to discharge to home. José Zaidi MD Internal Medicine, PGY-3 José Zaidi MD Resident 04/29/[address]41 [facility] 04-29-2024 Emergency department Note Sign-out Note Chacha Anguiano is a 18 y.o. male who presented to the ED w/ CC: Alcohol intoxication Received in sign-out from Dr. Rowe. Vitals: 04/29/24 0149 04/29/24 0406 BP: 136/75 97/56 Pulse: 87 74 Resp: 18 17 Temp: 98.1 degrees F (36.7 degrees C) TempSrc: Oral SpO2: 98% 97% Patient presented with the following: Alcohol intoxication Results for orders placed or performed during the hospital encounter of 04/29/24 GLUCOSE POC Result Value Ref Range Glucose (POC Device) 103 (H) 70 - 99 mg/dL POC Sample Type CAPBL No orders to display ED Course as of 04/29/24 0941 Sun Apr 29, 2024 0716 EtOH intox. On re-assessment patient is awake, alert, and oriented. States he is ready to discharge. No current acute medical concerns. Presentation likely secondary to alcohol intoxication which has now resolved. Plan to discharge to home. José Zaidi MD Internal Medicine, PGY-3 José Zaidi MD Resident 04/29/24941 ED Attending Chief Complaint Patient presents with Alcohol intoxication No past medical history on file. Chacha Anguiano is a 18 y.o. male. P/w concern for altered mental status. Per report was drinking alcohol tonight. No known medical history. A review of systems was obtained and is negative other than those discussed in the above HPI and accompanying resident documentation. Systems reviewed include Constitutional, Eyes, ENT, Cardiovascular, Pulmonary, Gastrointestinal, Neurological, Genitourinary, Musculoskeletal, Skin, Lymphatic. BP 136/75 Pulse 87 Temp 98.1 F (36.7 C) (Oral) Resp 18 SpO2 98% PE: NAD, nontoxic, HENT unremarkable, MMM, neck supple, heart RRR, no m/r/g, lungs CTAB, abd soft, nontender, nondistended, back nontender, extremities without edema, distal pulses palpable and symmetric, neurologic exam grossly nonfocal, alert and oriented x 3 Differential diagnosis: Differential diagnosis includes but is not limited to the following, at least one of which represents a life or limb threatening condition: ethanol intoxication, hypoglycemia Impression/Plan: Medical Decision Making 18 yo M who presents with altered mental status. Most likely ethanol intoxication per report. Check glucose, monitor. Risk Prescription drug management. Patient age greater than 64y/o? NO This patient's history, physical exam and any procedures were performed by the resident. On 04/29/2024 I saw and examined the patient. I discussed the history and examination with the resident and agree with the plan of care. In addition, I have fully participated in the care of this patient. I have reviewed all pertinent clinical information, including history, physical exam and medical decision making with the resident. Osito Maguire MD 04/29/24 0238 Pt bibm 7 pt etoh denies fall. VSS, GCS 15, NAD. Bed: [facility] Expected date: Expected time: Means of arrival: Comments: Medic ETOH documented in this encounter [facility] 04-29-2024 Physician Emergency department Note ED Attending Chief Complaint Patient presents with Alcohol intoxication No past medical history on file. Chacha Anguiano is a 18 y.o. male. P/w concern for altered mental status. Per report was drinking alcohol tonight. No known medical history. A review of systems was obtained and is negative other than those discussed in the above HPI and accompanying resident documentation. Systems reviewed include Constitutional, Eyes, ENT, Cardiovascular, Pulmonary, Gastrointestinal, Neurological, Genitourinary, Musculoskeletal, Skin, Lymphatic. BP 136/75 Pulse 87 Temp 98.1 F (36.7 C) (Oral) Resp 18 SpO2 98% PE: NAD, nontoxic, HENT unremarkable, MMM, neck supple, heart RRR, no m/r/g, lungs CTAB, abd soft, nontender, nondistended, back nontender, extremities without edema, distal pulses palpable and symmetric, neurologic exam grossly nonfocal, alert and oriented x 3 Differential diagnosis: Differential diagnosis includes but is not limited to the following, at least one of which represents a life or limb threatening condition: ethanol intoxication, hypoglycemia Impression/Plan: Medical Decision Making 18 yo M who presents with altered mental status. Most likely ethanol intoxication per report. Check glucose, monitor. Risk Prescription drug management. Patient age greater than 64y/o? NO This patient's history, physical exam and any procedures were performed by the resident. On 04/29/2024 I saw and examined the patient. I discussed the history and examination with the resident and agree with the plan of care. In addition, I have fully participated in the care of this patient. I have reviewed all pertinent clinical information, including history, physical exam and medical decision making with the resident. Osito Maguire MD 04/29/24 0238 [facility] Work Phone: 04-29-2024 Emergency department Note Pt bibm 7 pt etoh denies fall. VSS, GCS 15, NAD. [facility] 04-29-2024 Emergency department Note Bed: [facility] Expected date: Expected time: Means of arrival: Comments: Medic ETOH [facility] 04-03-2024 Telephone encounter Note Patient requesting refills: Last office visit 02/10/2024. Last refill 03/05/2024 . Requested Prescriptions Pending Prescriptions Disp Refills sertraline (ZOLOFT) 100 mg tablet 90 tablet 1 Sig: Take 1 tablet by mouth once daily. Please review and advise. Adela Edwards MA [facility] 04-03-2024 Telephone encounter Note pharm requesting refills: Last office visit 02/10/2024. Last refill 02/10/2024 . Requested Prescriptions Pending Prescriptions Disp Refills cyclobenzaprine (FLEXERIL) 5 mg tablet 14 tablet 0 Sig: Take 1 tablet by mouth two times a day as needed. Please review and advise. Adela Edwards MA [facility] 04-03-2024 Miscellaneous Notes pharm requesting refills: Last office visit 02/10/2024. Last refill 02/10/2024 . Requested Prescriptions Pending Prescriptions Disp Refills cyclobenzaprine (FLEXERIL) 5 mg tablet 14 tablet 0 Sig: Take 1 tablet by mouth two times a day as needed. Please review and advise. Adela Edwards MA documented in this encounter [facility] 04-03-2024 Miscellaneous Notes Patient requesting refills: Last office visit 02/10/2024. Last refill 03/05/2024 . Requested Prescriptions Pending Prescriptions Disp Refills sertraline (ZOLOFT) 100 mg tablet 90 tablet 1 Sig: Take 1 tablet by mouth once daily. Please review and advise. Adela Edwards MA documented in this encounter [facility] 03-08-2024 Note HNO ID: [id number] Author: CHERELLE MOURA LPN Service: ? Author Type: LICENSED NURSE Type: Progress Notes Filed: 03/08/2024 11:22 Note Text: ED Follow Up: Patient discharged from [facility] ED on 03/05/2024. 1. How are you feeling since your ED visit? Attempted to contact pt, unable to leave message as pt's vm is full. Have your symptoms improved or resolved? Attempted to contact pt, unable to leave message as pt's vm is full. 2. Were you prescribed any medications while in the ED or advised to stop any medication? Attempted to contact pt, unable to leave message as pt's vm is full. - If yes, were you able to fill your prescriptions? Attempted to contact pt, unable to leave message as pt's vm is full. -if stopped medication, what was the medication? Attempted to contact pt, unable to leave message as pt's vm is full. 3. Were you advised to schedule a follow up appointment with your provider? Attempted to contact pt, unable to leave message as pt's vm is full. - If no, Do you feel like you need an appointment scheduled? Attempted to contact pt, unable to leave message as pt's vm is full. - If yes, Do you need this scheduled now or has this already been scheduled? Attempted to contact pt, unable to leave message as pt's vm is full. 4. Were you able to contact the office or retail commission sales associate provider prior to your ED visit? Attempted to contact pt, unable to leave message as pt's vm is full. 5. Is there anything else I can do for you today? Attempted to contact pt, unable to leave message as pt's vm is full. [facility] 03-08-2024 History of Presen t illness Narrative ED Follow Up: Patient discharged from [facility] ED on 03/05/2024. 1. How are you feeling since your ED visit? Attempted to contact pt, unable to leave message as pt's vm is full. Have your symptoms improved or resolved? Attempted to contact pt, unable to leave message as pt's vm is full. 2. Were you prescribed any medications while in the ED or advised to stop any medication? Attempted to contact pt, unable to leave message as pt's vm is full. - If yes, were you able to fill your prescriptions? Attempted to contact pt, unable to leave message as pt's vm is full. -if stopped medication, what was the medication? Attempted to contact pt, unable to leave message as pt's vm is full. 3. Were you advised to schedule a follow up appointment with your provider? Attempted to contact pt, unable to leave message as pt's vm is full. - If no, Do you feel like you need an appointment scheduled? Attempted to contact pt, unable to leave message as pt's vm is full. - If yes, Do you need this scheduled now or has this already been scheduled? Attempted to contact pt, unable to leave message as pt's vm is full. 4. Were you able to contact the office or retail commission sales associate provider prior to your ED visit? Attempted to contact pt, unable to leave message as pt's vm is full. 5. Is there anything else I can do for you today? Attempted to contact pt, unable to leave message as pt's vm is full. documented in this encounter [facility] 03-08-2024 Note Patient Outreach (AG FAMPLE) CHACHA MENDEZ II ([id number]) 3 M Date Time Provider Department 03/08/24 CHERELLE MOURA During your visit today, we recorded the following information about you: Cherelle Moura LPN 03/08/2024 11:22 AM Signed ED Follow Up: Patient discharged from [facility] ED on 03/05/2024. 1. How are you feeling since your ED visit? Attempted to contact pt, unable to leave message as pt's vm is full. Have your symptoms improved or resolved? Attempted to contact pt, unable to leave message as pt's vm is full. 2. Were you prescribed any medications while in the ED or advised to stop any medication? Attempted to contact pt, unable to leave message as pt's vm is full. - If yes, were you able to fill your prescriptions? Attempted to contact pt, unable to leave message as pt's vm is full. -if stopped medication, what was the medication? Attempted to contact pt, unable to leave message as pt's vm is full. 3. Were you advised to schedule a follow up appointment with your provider? Attempted to contact pt, unable to leave message as pt's vm is full. - If no, Do you feel like you need an appointment scheduled? Attempted to contact pt, unable to leave message as pt's vm is full. - If yes, Do you need this scheduled now or has this already been scheduled? Attempted to contact pt, unable to leave message as pt's vm is full. 4. Were you able to contact the office or retail commission sales associate provider prior to your ED visit? Attempted to contact pt, unable to leave message as pt's vm is full. 5. Is there anything else I can do for you today? Attempted to contact pt, unable to leave message as pt's vm is full. Allergies As of Date: 03/08/2024 (No Known Allergies) Date Reviewed: 02/10/2024 Reviewed by: Alba Ken APRN.[employer] - Fully Assessed Prescriptions as of 03/08/2024 - sertraline (ZOLOFT) 100 mg tablet TAKE 1 TABLET BY MOUTH EVERY DAY - cyclobenzaprine (FLEXERIL) 5 mg tablet Take 1 tablet by mouth two times a day as needed for pain or muscle spasm. - naproxen (NAPROSYN) 500 mg tablet Take 1 tablet by mouth two times a day as needed (FOR PAIN - TAKE WITH FOOD.). Problem List As Of Date 03/08/2024 Noted Resolved Palpitations [R00.2] 09/07/2023 Encounter Status:Closed by CHERELLE MOURA on 03/08/24 [facility] 03-05-2024 Telephone encounter Note Pharmacy comment: REQUEST FOR 90 DAYS PRESCRIPTION. DX Code Needed. [facility] 03-05-2024 Miscellaneous Notes Pharmacy comment: REQUEST FOR 90 DAYS PRESCRIPTION. DX Code Needed. documented in this encounter [facility] 03-05-2024 Hospital Discharg e instructions Patient Education 03/05/2024 01:45:38 Relieving Back Pain Relieving Back Pain Back pain is a common problem. You can strain back muscles by lifting too much weight or just by moving the wrong way. Back strain can be uncomfortable, even painful. And it can take weeks or months to improve. To help yourself feel better and prevent future back strains, try these tips. Important: Don't give aspirin to children or teens without first discussing it with your child's healthcare provider. Ice Ice reduces muscle pain and swelling. It helps most during the first 24 to 48 hours after an injury. Wrap an ice pack or a bag of frozen peas in a thin towel. Never put ice directly on your skin. Place the ice where your back hurts the most. Don t ice for more than 20 minutes at a time. You can use ice several times a day. Medicines Uzvm-hmj-rwlqcqe pain relievers include acetaminophen and anti-inflammatory medicines, which includes aspirin, naproxen, or ibuprofen. They can help ease discomfort. Some also reduce swelling. Tell your healthcare provider about any medicines you are already taking. Take medicines only as directed. Manipulation and massage Having manipulation by an osteopathic doctor or chiropractor may be helpful. Getting a massage also may help. Heat After the first 48 hours, heat can relax sore muscles and improve blood flow. Try a warm bath or shower. Or use a heating pad set on low. To prevent a burn, keep a cloth between you and the heating pad. Don t use a heating pad for more than 15 minutes at a time. Never sleep on a heating pad. 7305-3812 [employer]. [address] [place] [address], [place] [address]. All rights reserved. This information is not intended as a substitute for professional medical care. Always follow your healthcare professional's instructions. Follow Up Care 03/05/2024 01:18:54 With:Go to emergency room if symptoms worsen Address:Unknown When:2-4 days With:MODESTO CHAPMAN MD Address: [address] [place], [place] [address]- When:2-4 days [facility] 03-05-2024 Note Discharge Instructions Thank you for allowing [facility] to assist you with your healthcare needs. The following is important discharge information regarding your hospital visit. Diagnosis from Today's Visit Spasm of thoracic back muscle What to Do Next Instructions from Your Care Team Please call your primary care provider in the morning for outpatient follow-up and possible establishment with physical therapy. Please take Tylenol 500 mg every 4-6 hours for your discomfort as well as the cyclobenzaprine at night as needed for muscle spasm of your upper back muscles. If you develop any chest pain, shortness of breath, focal numbness or weakness, loss of bowel or bladder control, difficulty swallowing or fevers or chills or unintentional weight loss please return to the emergency department for further evaluation. No qualifying data available. Post Acute Orders No qualifying data available. You Need to Schedule the Following Appointments Follow Up with Go to emergency room if symptoms worsen When:Within 2-4 days Follow Up with MODESTO CHAPMAN MD When:Within 2-4 days Where:[facility] [address] [place], [place] [address]- Allergies NKA Medications Please ask your primary doctor or pharmacist before taking any other medication not listed, including over the counter drugs, herbal medications, vitamins and or supplements as they may interact with your home medications. What How Much When Instructions Last Dose New cyclobenzaprine (cyclobenzaprine 5 mg oral tablet) 1 tab(s) by mouth Three (3) times a day Duration: 7 Days Printed Prescription Unchanged sertraline (Zoloft) See instructions Oral qDay Please take this list to your next doctor s visit. Bring all medications you take, including over the counter medications, herbals and other supplements with you to your doctor s visit. Patients and families are reminded to discard old lists and to update any records with all medication providers or retail pharmacies. Education Materials Relieving Back Pain Back pain is a common problem. You can strain back muscles by lifting too much weight or just by moving the wrong way. Back strain can be uncomfortable, even painful. And it can take weeks or months to improve. To help yourself feel better and prevent future back strains, try these tips. Important: Don't give aspirin to children or teens without first discussing it with your child's healthcare provider. Ice Ice reduces muscle pain and swelling. It helps most during the first 24 to 48 hours after an injury. Wrap an ice pack or a bag of frozen peas in a thin towel. Never put ice directly on your skin. Place the ice where your back hurts the most. Don t ice for more than 20 minutes at a time. You can use ice several times a day. Medicines Mhyy-ush-iurvjbg pain relievers include acetaminophen and anti-inflammatory medicines, which includes aspirin, naproxen, or ibuprofen. They can help ease discomfort. Some also reduce swelling. Tell your healthcare provider about any medicines you are already taking. Take medicines only as directed. Manipulation and massage Having manipulation by an osteopathic doctor or chiropractor may be helpful. Getting a massage also may help. Heat After the first 48 hours, heat can relax sore muscles and improve blood flow. Try a warm bath or shower. Or use a heating pad set on low. To prevent a burn, keep a cloth between you and the heating pad. Don t use a heating pad for more than 15 minutes at a time. Never sleep on a heating pad. [id number] [employer]. [address] [place] [address], [place] [address]. All rights reserved. This information is not intended as a substitute for professional medical care. Always follow your healthcare professional's instructions. Additional Information VACCINATE! IT SAVES LIVES! Members of the community who have not yet received the COVID-19 vaccine and would like to receive it can visit one of [facility] vaccine clinics. There are many vaccine clinic locations within the [facility]. For locations and available times, please visit [email or web address] [email or web address] It is important to note that some COVID mobile vaccine clinics are held outdoors and may be canceled in rainy or stormy conditions. To learn more about pediatric vaccinations (ages 5-11), we invite you to visit the [facility] webpage. [email or web address]/p [email or web address]-Vfibh-Iscxnjmbntt-Freq mlmcyt-Nbxwy-Byiaagczc.html To learn more about the COVID-19 vaccine, we invite you to visit the CDC website for a list of frequently asked questions. https://www.cdc.gov/coronavirus/ 2019-ncov/vaccines/faq.html [facility] Patient Portal Access Instructions: Stay connected with your healthcare team and access your personal medical information anytime with the [facility] Patient Portal. If you would like a full copy of your medical records please contact the [facility] Medical Records Department Tuesday through Tuesday between 8a.m. and 4:30p.m. Please follow the directions below to access the portal: 1.Access the email account you provided upon registration to the [facility].2.Look for an invitation email from [facility].3.Open the email and access the invitation link: Accept Invitation to [facility].Fill in the required sheehan to create your account. Sign into [email or web address] with your username and password that you created in the above steps to stay up to date. You can then view a summary of results, a summary of your visits, and the ability to download your summaries to your computer or send the information securely to a physician. Remember that your healthcare information is confidential, so carefully consider who you will allow to register on the [facility] Patient Portal for access to your information. You can also access the [facility] Patient Portal on the [employer] xavier. Simply click on Health Records under Health Data and then click on the [facility] logo. HOW TO SAFELY DISPOSE OF PRESCRIPTION MEDICATIONS Please use one of the following methods to safely dispose of your unused medications. 1.Use a drug disposal kit: the drug disposal pouch allows you to safely discard your old and unused drugs. Ask your nurse to give you one when you are discharged.2.Visit a local take-back location: Many local pharmacies and police departments have programs that collect old and unwanted prescription drugs. Call your local pharmacy or go to http://bit.Circa/8W2Sa7i to find one close to you.3.Make use of household items: Use cat litter or old coffee grounds to dispose medications if other options are not available. Mix your drugs with these household products, seal them in an airtight container and throw it into the garbage. Call [facility]: [phone] to be sure your drugs can be disposed of in this way. Some medicines may require a different approach.4.Never flush your medications down the toilet. IF YOU HAVE BEEN PRESCRIBED AN OPIOIDS FOR PAIN If you have been prescribed an opioid (such as hydrocodone, oxycodone or morphine), it is critical to understand the possible side effects and risks of opioid pain medications. Even when taken as directed, opioids can have several side effects including: Tolerance, meaning you might need to take more of a medication for the same pain relief. Nausea, vomiting and/or constipation. Sleepiness, dizziness, dry mouth, confusion, depression or itching. Physical dependence, meaning you have withdrawal symptoms when a medication is stopped ? this can develop within a few days. KNOW YOUR RESPONSIBILITIES It is important to know exactly how much and how often to take the opioid pain medications you are prescribed. Never take opioids in higher amounts or more often than prescribed. Do not combine opioids with alcohol or other drugs that cause drowsiness, such as benzodiazepines, also known as benzos, including diazepam and alprazolam, muscle relaxants or sleep aids. Never sell or share prescription opioids. This is illegal. Store opioids in a secure place and out of reach of others (including children, family, friends and visitors). The last page(s) of this document has been signed and retained as a CHART COPY Signatures Patient Education Materials Relieving Back Pain Medication Leaflets My discharge plan and instructions have been reviewed and explained to me and I,CHACHA MENDEZ understand my current condition and have read and understand these discharge instructions. I have received a written copy of the plan/instructions. If I have questions, I am aware that I should contact my doctor. Patient/Project Drilling Engineer Signature: Date/Time: Relationship to Patient: Witness Name/Signature: Date/Time: [facility] 02-10-2024 Note HNO ID: [id number] Author: ALBA KEN APRN.[employer] Service: ? Author Type: Nurse Practitioner Type: Progress Notes Filed: 02/12/2024 15:49 Note Text: CHIEF COMPLAINT: Chacha Mendez II is a 18 year old male who presents for Follow up anxiety . I reviewed past medical, surgical, social, and family histories today and updated chart. Allergies, chronic medications, and supplements were also reviewed. Having upper back pain on both sides for the last 4-5 days Hard to go to sleep Pain can be sharp No previous injury No N/T Massage helped Hasn't taken anything for pain Went to the [facility] ER for chest pain Couldn't take a deep breath in because of chest pain and back pain Flora like his heart would beat fast after he gets out of the pool CXR was normal and EKG showed NSR He was advised to speak with me about obtaining a Holter monitor He was also advised to discuss increasing his Zoloft since there may be an anxiety component to his symptoms He has take 2 tablets of his Zoloft for the last week and hasn't noticed a difference yet STUDY: X-RAY CHEST REASON FOR EXAM: Male, 18 years old. chest pain TECHNIQUE: August 22 2023 COMPARISON: None. ___ FINDINGS: The lungs are clear and expanded. There is no demonstrated pleural abnormality. Normal size heart. Normal mediastinum and charlie. Normal visualized pulmonary arteries. Normal visualized aortic arch and descending thoracic aorta. Normal visualized thoracic spine. Normal visualized ribs, clavicles, and shoulders. There is no demonstrated abnormality of the visualized soft tissue structures of the upper abdomen. ___ The history is provided by the patient. History reviewed. No pertinent past medical history. History reviewed. No pertinent surgical history. Social History Tobacco Use Smoking status: Never Smokeless tobacco: Never Vaping Use Vaping Use: Former Substances: Nicotine Substance Use Topics Alcohol use: Never Drug use: Never ALLERGIES No Known Allergies Family History Problem Relation Age of Onset other (WPW) Mother Hypertension Father Thyroid Sister Heart Attack Paternal Grandfather Current Outpatient Medications Medication Sig Dispense Refill sertraline (ZOLOFT) 100 mg tablet Take 1 tablet by mouth once daily. 30 tablet 2 cyclobenzaprine (FLEXERIL) 5 mg tablet Take 1 tablet by mouth two times a day as needed for pain or muscle spasm. 14 tablet 0 naproxen (NAPROSYN) 500 mg tablet Take 1 tablet by mouth two times a day as needed (FOR PAIN - TAKE WITH FOOD.). 14 tablet 0 No current facility-administered medications for this visit. Review of Systems Constitutional: Negative for appetite change, chills, diaphoresis, fatigue, fever and unexpected weight change. Respiratory: Positive for shortness of breath. Negative for cough, chest tightness and wheezing. Cardiovascular: Positive for chest pain and palpitations. Negative for leg swelling. Gastrointestinal: Negative for abdominal pain, constipation, diarrhea, nausea and vomiting. Musculoskeletal: Positive for back pain. Neurological: Negative for headaches. Psychiatric/Behavioral: Positive for sleep disturbance. The patient is nervous/anxious. BP 106/62 Pulse 60 Temp 98 Resp 18 Ht 5' 7.75 (1.72m) Wt 147 lb (66.7kg) SpO2 98% BMI 22.51 kg/(m2). Physical Exam Vitals and nursing note reviewed. Constitutional: Appearance: Normal appearance. HENT: Mouth/Throat: Mouth: Mucous membranes are moist. Pharynx: Oropharynx is clear. Eyes: Pupils: Pupils are equal, round, and reactive to light. Cardiovascular: Rate and Rhythm: Normal rate and regular rhythm. Pulses: Normal pulses. Heart sounds: Normal heart sounds. No murmur heard. Pulmonary: Effort: Pulmonary effort is normal. Breath sounds: Normal breath sounds. Chest: Chest wall: No swelling, tenderness or crepitus. Musculoskeletal: Cervical back: Neck supple. Lymphadenopathy: Cervical: No cervical adenopathy. Skin: General: Skin is warm and dry. Neurological: Mental Status: He is alert and oriented to person, place, and time. Psychiatric: Mood and Affect: Mood is anxious. Behavior: Behavior normal. Cognition and Memory: Cognition normal. ASSESSMENT/PLAN: 1. Anxiety - ICD9: 300.00, ICD10: F41.9 (primary diagnosis) - Increase Zoloft to 100 mg daily - F/U in 2 months or sooner if needed - SERTRALINE 100 MG TABLET 2. Palpitations - ICD9: 785.1, ICD10: R00.2 - HOLTER MONITOR 72 HOUR 3. Upper back pain - ICD9: 724.5, ICD10: M54.9 - Suspect muscular in nature - Warm moist heat for 20 min three times a day - NSAIDS- see orders - Muscle relaxant- see orders - CYCLOBENZAPRINE 5 MG TABLET - NAPROXEN 500 MG TABLET New medication(s) prescribed today: Yes: Zoloft, Flexeril, and Naproxen. Discussed new medication dosage, usage, goals of therapy, (more content not included)... [facility] 02-10-2024 History of Presen t illness Narrative CHIEF COMPLAINT: Chacha Mendez II is a 18 year old male who presents for Follow up anxiety . I reviewed past medical, surgical, social, and family histories today and updated chart. Allergies, chronic medications, and supplements were also reviewed. Having upper back pain on both sides for the last 4-5 days Hard to go to sleep Pain can be sharp No previous injury No N/T Massage helped Hasn't taken anything for pain Went to the [facility] ER for chest pain Couldn't take a deep breath in because of chest pain and back pain Flora like his heart would beat fast after he gets out of the pool CXR was normal and EKG showed NSR He was advised to speak with me about obtaining a Holter monitor He was also advised to discuss increasing his Zoloft since there may be an anxiety component to his symptoms He has take 2 tablets of his Zoloft for the last week and hasn't noticed a difference yet STUDY: X-RAY CHEST REASON FOR EXAM: Male, 18 years old. chest pain TECHNIQUE: August 22 2023 COMPARISON: None. ___ FINDINGS: The lungs are clear and expanded. There is no demonstrated pleural abnormality. Normal size heart. Normal mediastinum and charlie. Normal visualized pulmonary arteries. Normal visualized aortic arch and descending thoracic aorta. Normal visualized thoracic spine. Normal visualized ribs, clavicles, and shoulders. There is no demonstrated abnormality of the visualized soft tissue structures of the upper abdomen. ___ The history is provided by the patient. History reviewed. No pertinent past medical history. History reviewed. No pertinent surgical history. Social History Tobacco Use Smoking status: Never Smokeless tobacco: Never Vaping Use Vaping Use: Former Substances: Nicotine Substance Use Topics Alcohol use: Never Drug use: Never ALLERGIES No Known Allergies Family History Problem Relation Age of Onset other (WPW) Mother Hypertension Father Thyroid Sister Heart Attack Paternal Grandfather Current Outpatient Medications Medication Sig Dispense Refill sertraline (ZOLOFT) 100 mg tablet Take 1 tablet by mouth once daily. 30 tablet 2 cyclobenzaprine (FLEXERIL) 5 mg tablet Take 1 tablet by mouth two times a day as needed for pain or muscle spasm. 14 tablet 0 naproxen (NAPROSYN) 500 mg tablet Take 1 tablet by mouth two times a day as needed (FOR PAIN - TAKE WITH FOOD.). 14 tablet 0 No current facility-administered medications for this visit. Review of Systems Constitutional: Negative for appetite change, chills, diaphoresis, fatigue, fever and unexpected weight change. Respiratory: Positive for shortness of breath. Negative for cough, chest tightness and wheezing. Cardiovascular: Positive for chest pain and palpitations. Negative for leg swelling. Gastrointestinal: Negative for abdominal pain, constipation, diarrhea, nausea and vomiting. Musculoskeletal: Positive for back pain. Neurological: Negative for headaches. Psychiatric/Behavioral: Positive for sleep disturbance. The patient is nervous/anxious. BP 106/62 Pulse 60 Temp 98 Resp 18 Ht 5' 7.75 (1.72m) Wt 147 lb (66.7kg) SpO2 98% BMI 22.51 kg/(m^2). Physical Exam Vitals and nursing note reviewed. Constitutional: Appearance: Normal appearance. HENT: Mouth/Throat: Mouth: Mucous membranes are moist. Pharynx: Oropharynx is clear. Eyes: Pupils: Pupils are equal, round, and reactive to light. Cardiovascular: Rate and Rhythm: Normal rate and regular rhythm. Pulses: Normal pulses. Heart sounds: Normal heart sounds. No murmur heard. Pulmonary: Effort: Pulmonary effort is normal. Breath sounds: Normal breath sounds. Chest: Chest wall: No swelling, tenderness or crepitus. Musculoskeletal: Cervical back: Neck supple. Lymphadenopathy: Cervical: No cervical adenopathy. Skin: General: Skin is warm and dry. Neurological: Mental Status: He is alert and oriented to person, place, and time. Psychiatric: Mood and Affect: Mood is anxious. Behavior: Behavior normal. Cognition and Memory: Cognition normal. ASSESSMENT/PLAN: 1. Anxiety - ICD9: 300.00, ICD10: F41.9 (primary diagnosis) - Increase Zoloft to 100 mg daily - F/U in 2 months or sooner if needed - SERTRALINE 100 MG TABLET 2. Palpitations - ICD9: 785.1, ICD10: R00.2 - HOLTER MONITOR 72 HOUR 3. Upper back pain - ICD9: 724.5, ICD10: M54.9 - Suspect muscular in nature - Warm moist heat for 20 min three times a day - NSAIDS- see orders - Muscle relaxant- see orders - CYCLOBENZAPRINE 5 MG TABLET - NAPROXEN 500 MG TABLET New medication(s) prescribed today: Yes: Zoloft, Flexeril, and Naproxen. Discussed new medication dosage, usage, goals of therapy, and side effects. Patient has been apprised of any potential drug interactions to be aware of. Patient expresses understanding. Counseling completed in adopting health behaviors such as avoiding excessive alcohol use, avoid tobacco use, improve nutrition, and engage in physical activities. Copy of written care plan, clinical summary, treatment plan, new medications, goals, and self management requirements were given to patient. Alba Ken APRN.CNP documented in this encounter [facility] 02-03-2024 Telephone encounter Note No Show Documentation Chacha Pérezaga II no showed for an appointment on 02/03/24 with Alba Ken APRN.CNP at 1:20 pm. He was scheduled for follow up anxiety & meds. I called and was unable to speak with the patient regarding his missed appointment. Chacha did not state the reason that he missed his appointment was because pt did not answer call . Resources discussed/offered to patient: left message. No show determined to be fault of patient: Yes This is the patients second no show in the last 12 months. Patient was rescheduled for NA. Letter sent through [employer]. Is this the Third or Fourth No Show? No November Mildred Benitez February 03, 2024 2:45 PM [facility] 02-03-2024 Miscellaneous Notes No Show Documentation Chacha Andrea MARI no showed for an appointment on 02/03/24 with Alba Ken APRN.CNP at 1:20 pm. He was scheduled for follow up anxiety & meds. I called and was unable to speak with the patient regarding his missed appointment. Chacha did not state the reason that he missed his appointment was because pt did not answer call . Resources discussed/offered to patient: left message. No show determined to be fault of patient: Yes This is the patients second no show in the last 12 months. Patient was rescheduled for NA. Letter sent through [employer]. Is this the Third or Fourth No Show? No November Mildred Benitez February 03, 2024 2:45 PM documented in this encounter [facility] 01-16-2024 Telephone encounter Note No Show Documentation Chacha Andrea GUERRA no showed for an appointment on 01/16/2024 with Alba Ken APRN.CNP at 2:00 pm. He was scheduled for follow up for anxiety. I called and was unable to reach the patient regarding his missed appointment Resources discussed/offered to patient: na No show determined to be fault of patient: Yes This is the patients first no show in the last 12 months. Patient was rescheduled for na. Letter sent thru [employer] : Yes Is this the Third or Fourth No Show? No Buffy Sorensen January 16, 2024 2:43 PM [facility] 01-16-2024 Miscellaneous Notes No Show Documentation Chacha Andrea GUERRA no showed for an appointment on 01/16/2024 with Alba Ken APRN.CNP at 2:00 pm. He was scheduled for follow up for anxiety. I called and was unable to reach the patient regarding his missed appointment Resources discussed/offered to patient: na No show determined to be fault of patient: Yes This is the patients first no show in the last 12 months. Patient was rescheduled for na. Letter sent thru [facility] : Yes Is this the Third or Fourth No Show? No Buffy Sorensen January 16, 2024 2:43 PM documented in this encounter [facility] 12-12-2023 Telephone encounter Note pharm requesting refills: Last office visit 11/14/2023. Last refill 11/14/2023 12/15/2023 Requested Prescriptions Pending Prescriptions Disp Refills sertraline (ZOLOFT) 25 mg tablet [Pharmacy Med Name: SERTRALINE HCL 25 MG TABLET] 30 tablet 0 Sig: TAKE 1 TAB BY MOUTH DIRECTED TAKE HALF A TAB DAILY X7 DAYS & THEN INCREASE TO 1 FULL TABLET DAILY Please review and advise. Adela Edwards MA [facility] 12-12-2023 Miscellaneous Notes pharm requesting refills: Last office visit 11/14/2023. Last refill 11/14/2023 12/15/2023 Requested Prescriptions Pending Prescriptions Disp Refills sertraline (ZOLOFT) 25 mg tablet [Pharmacy Med Name: SERTRALINE HCL 25 MG TABLET] 30 tablet 0 Sig: TAKE 1 TAB BY MOUTH DIRECTED TAKE HALF A TAB DAILY X7 DAYS & THEN INCREASE TO 1 FULL TABLET DAILY Please review and advise. Adela Edwards MA documented in this encounter [facility] 11-14-2023 Alba Billy APRN.[employer]AT - 11/14/2023 12:36 PM EDT GET HELP If you have symptoms of clinical depression, you can get help by doing one or more of the followin. Please talk with your doctor. 2. If you are already in treatment, make sure you contact and update your doctor or therapist. 3. Review additional options for care based on patient or provider preference: Central/Multiple Locations: [facility]: [address] [facility] - [phone] Fran Mildred: [address] [address] [place] - [phone] [facility]: [address] [facility] - [phone] [facility]: [address] [facility] - [phone] [facility]: [address] [facility] - [phone] (Medicaid only) [facility]: Multiple Locations - [phone] [facility] Department of Psychiatry & Psychology at [phone] (select Option 1) or [phone] (select Option 1) [facility]: Multiple Locations - [phone] (Medicaid only) Edmar Clemente [facility] - Multiple Locations - [phone] (Medicaid only) [facility] Multiple Locations - [phone] [facility]: Multiple Locations - [phone] [facility]: Multiple Locations - [phone] [place] Locations: [facility]: [address] [facility] - [phone] [facility]: [address] [facility] - [phone] Jessica Daniels PhD and Associates: [address] [facility] - [phone] [facility] [address] [place] - [phone] Ginny Ibarra MD: [address] [facility] - [phone] [facility] [address], [place] - [phone] [facility]: [address], [place] - [phone] [facility], [address] [place] [address] - [phone] [place] Locations: Shanita Blood MD [facility] Inc: [address], Christine - [phone] Jessica Daniels PhD [facility]: [address].[facility] - [phone] [facility]: [address] [facility] - [phone] [facility] [address] [facility], [place] - [phone] [facility], [address] [facility], [facility] [address], [place] - [phone] [facility], [address] Lamb[address] [facility] - [phone] [facility]: [address] [facility] [phone] [place] Locations: [facility] Services [facility] L [address] [facility] - [phone] [facility] L Suzanne Velasquez, [facility] - [phone] [facility] Psychiatry: 1 [facility] - [phone] [facility]: [address] [facility] - [phone] [facility] - [address] [facility] - [phone] [place] Locations: [facility] - Gomez Waddell MD Psychiatry, Sleep Medicine - [address] [phone] or [phone] Feliberto Calhoun MD - [address] [facility] [phone] [facility] - MARCIAL Valdez, DCSW - [address] [phone] [facility] - [address] [facility] [phone] [facility] (NO Commercial Insurance accepted) - [address] [phone] [place] [facility] - Duglas Abebe, [facility], [facility] - [address] [facility] [phone] MARCIAL Potts - 2401 [facility] [phone] Shaye Weaver, [facility] - [address] [phone] Nikita Higgins, PhD - [address] [phone] Maria Teresa Ruggiero, [employer] - [address] [facility] [phone] Zhanna Rubio, [facility], [facility] (No Medicare, [place], [employer]) - [address] - [phone] Con Noe, [facility] - [address] [place] [address], [place] - [phone] Misael Esquivel, [facility] - [address] [facility] [phone] For additional resources and information please call or review the website: [email or web address] If you are feeling suicidal, please call [employer], , or the [place] Suicide Hotline , Call 661, or go to your nearest emergency room documented in this encounter [facility] 11-14-2023 Note HNO ID: [id number] Author: ALBA KEN APRN.CNP Service: ? Author Type: Nurse Practitioner Type: Progress Notes Filed: 11/14/2023 12:44 Note Text: [facility] Alba Ken APRN-DECK[employer]RIMP [employer]AT [address] [place] [address] Dept Dept. Visit Date: November 14, 2023 Mr.Xavier Andrea GUERRA Date of : 2005 MRN/E #: [id number] Chief Complaint: Patient presents with: New Patient: Establish care previous pcp was Diane Chapman in [facility]. Would like to discuss anxiety has had it since August History of Present Illness Chacha Mendez II is a 18 year old male presents today as a new patient to establish care. He would like to discuss anxiety today. I reviewed past medical, surgical, social, and family histories today and updated chart. Allergies, chronic medications, and supplements were also reviewed. 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 Would take a Benadryl but could make him sleep late. Drinks water primarily Eating healthy Working out more Sister has thyroid problem His aunt has anxiety Was having palpitations and was seen by cardiology We had the pleasure of seeing Chacha Mendez II in the Heart Center at [facility] on August 24, 2023. As you know, Chacha is a 17 y.o. male seen in evaluation for palpitations. He reports an episode of palpitations 5 days ago following drinking an energy drink. 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 He then experienced another episode of palpitations 1 day ago at night with a reported heart rate of approximately 90 beats per minute. There has been no chest pain, shortness of breath, or syncope. Evaluation today demonstrated a normal cardiac examination and benign ECG. Palpitations are feelings of your heart beating differently and are often normal or benign heart beats that typically require no intervention or treatment. We will work to capture your symptoms on glaciologist to determine the heart rhythm at those times. 1. Continue primary medical care as directed. 2. No cardiac medications recommended. Recommend continuing to avoid caffeine and continuing to drink a minimum of 80-100 ounces of caffeine free fluid daily. 3. No activity restrictions from a cardiovascular perspective. 4. No restrictions or special requirements for anesthesia from a cardiovascular perspective. 5. No scheduled cardiology follow-up is required at this time. We will follow-up the cardiac event monitor results by phone and arrange additional follow-up as needed. Did the Kardia heart monitor but it was giving him anxiety when checking it so he stopped using it. History reviewed. No pertinent past medical history. History reviewed. No pertinent surgical history. Social History Tobacco Use Smoking status: Never Smokeless tobacco: Never Vaping Use Vaping Use: Former Substances: Nicotine Substance Use Topics Alcohol use: Never Drug use: Never Social History Social History Narrative Not on file Family History Reviewed Including Cardiac Diseases, Psychiatric Diseases, AND Substance Abuse Problem: other (WPW) Relation: Mother Age of Onset: (Not Specified) Problem: Hypertension Relation: Father Age of Onset: (Not Specified) Problem: Thyroid Relation: Sister Age of Onset: (Not Specified) Problem: Heart Attack Relation: Paternal Grandfather Age of Onset: (Not Specified) ALLERGIES No Known Allergies Current Outpatient Medications Medication Sig sertraline (ZOLOFT) 25 mg tablet Take 1 tablet by mouth as directed. Take 1/2 tablet daily for 7 days and then increase to 1 full tablet daily No current facility-administered medications for this visit. Review of Systems Review of Systems Constitutional: Positive for fatigue. Negative for appetite change, chills, diaphoresis, fever and unexpected weight change. HENT: Negative. Eyes: Negative for visual disturbance. Respiratory: Negative for chest tightness an (more content not included)... [facility] 11-14-2023 History of Presen t illness Narrative Images from the original note were not included. [facility] [address] [place] [address] Dept Dept. Visit Date: November 14, 2023 Mr.Xavier Andrea GUERRA Date of : 2005 MRN/E #: [id number] Chief Complaint: Patient presents with: New Patient: Establish care previous pcp was Diane Chapman in [facility]. Would like to discuss anxiety has had it since August History of Present Illness Chacha Mendez II is a 18 year old male presents today as a new patient to establish care. He would like to discuss anxiety today. I reviewed past medical, surgical, social, and family histories today and updated chart. Allergies, chronic medications, and supplements were also reviewed. 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 Would take a Benadryl but could make him sleep late. Drinks water primarily Eating healthy Working out more Sister has thyroid problem His aunt has anxiety Was having palpitations and was seen by cardiology We had the pleasure of seeing Chacha Mendez II in the Heart Center at [facility] on August 24, 2023. As you know, Chacha is a 17 y.o. male seen in evaluation for palpitations. He reports an episode of palpitations 5 days ago following drinking an energy drink. 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 He then experienced another episode of palpitations 1 day ago at night with a reported heart rate of approximately 90 beats per minute. There has been no chest pain, shortness of breath, or syncope. Evaluation today demonstrated a normal cardiac examination and benign ECG. Palpitations are feelings of your heart beating differently and are often normal or benign heart beats that typically require no intervention or treatment. We will work to capture your symptoms on glaciologist to determine the heart rhythm at those times. 1. Continue primary medical care as directed. 2. No cardiac medications recommended. Recommend continuing to avoid caffeine and continuing to drink a minimum of 80-100 ounces of caffeine free fluid daily. 3. No activity restrictions from a cardiovascular perspective. 4. No restrictions or special requirements for anesthesia from a cardiovascular perspective. 5. No scheduled cardiology follow-up is required at this time. We will follow-up the cardiac event monitor results by phone and arrange additional follow-up as needed. Did the Kardia heart monitor but it was giving him anxiety when checking it so he stopped using it. History reviewed. No pertinent past medical history. History reviewed. No pertinent surgical history. Social History Tobacco Use Smoking status: Never Smokeless tobacco: Never Vaping Use Vaping Use: Former Substances: Nicotine Substance Use Topics Alcohol use: Never Drug use: Never Social History Social History Narrative Not on file Family History Reviewed Including Cardiac Diseases, Psychiatric Diseases, & Substance Abuse Problem: other (WPW) Relation: Mother Age of Onset: (Not Specified) Problem: Hypertension Relation: Father Age of Onset: (Not Specified) Problem: Thyroid Relation: Sister Age of Onset: (Not Specified) Problem: Heart Attack Relation: Paternal Grandfather Age of Onset: (Not Specified) ALLERGIES No Known Allergies Current Outpatient Medications Medication Sig sertraline (ZOLOFT) 25 mg tablet Take 1 tablet by mouth as directed. Take 1/2 tablet daily for 7 days and then increase to 1 full tablet daily No current facility-administered medications for this visit. Review of Systems Review of Systems Constitutional: Positive for fatigue. Negative for appetite change, chills, diaphoresis, fever and unexpected weight change. HENT: Negative. Eyes: Negative for visual disturbance. Respiratory: Negative for chest tightness and shortness of breath. Cardiovascular: Positive for palpitations. Negative for chest pain and leg swelling. Gastrointestinal: Negative for abdominal pain, diarrhea, nausea and vomiting. Genitourinary: Negative. Musculoskeletal: Positive for neck stiffness. Negative for back pain and neck pain. Skin: Negative. Neurological: Negative for dizziness, light-headedness and headaches. Hematological: Negative. Psychiatric/Behavioral: Positive for dysphoric mood and sleep disturbance. Negative for agitation, decreased concentration, hallucinations, self-injury and suicidal ideas. The patient is nervous/anxious. Vital Signs BP 110/58 Pulse 62 Temp 97.6 Resp 16 Ht 5' 7.75 (1.72m) Wt 153 lb (69.4kg) SpO2 98% BMI 23.43 kg/(m^2). Physical Exam Vitals and nursing note reviewed. Constitutional: Appearance: Normal appearance. HENT: Mouth/Throat: Mouth: Mucous membranes are moist. Pharynx: Oropharynx is clear. Eyes: Pupils: Pupils are equal, round, and reactive to light. Neck: Thyroid: No thyromegaly. Cardiovascular: Rate and Rhythm: Normal rate and regular rhythm. Heart sounds: Normal heart sounds. Pulmonary: Effort: Pulmonary effort is normal. Breath sounds: Normal breath sounds. Musculoskeletal: Cervical back: Normal range of motion and neck supple. Skin: General: Skin is warm and dry. Neurological: Mental Status: He is alert and oriented to person, place, and time. Psychiatric: Mood and Affect: Mood and affect normal. Behavior: Behavior normal. Cognition and Memory: Cognition normal. Visit Diagnoses (F41.9) Anxiety (primary encounter diagnosis) (R53.83) Low energy Assessment and Plan 1. Anxiety - ICD9: 300.00, ICD10: F41.9 (primary diagnosis) - Discussed starting treatment with an SSRI and patient is in agreement. Will start Zoloft 12.5 mg daily for 7 days and then increase to 25 mg daily. F/U in 4 weeks or sooner if needed. He declines counseling at this time. - COMPLETE BLOOD COUNT - COMPREHENSIVE METABOLIC PANEL - THYROID STIMULATING HORMONE - SERTRALINE 25 MG TABLET 2. Low energy - ICD9: 780.79, ICD10: R53.83 - VITAMIN D 25 HYDROXY Discussed above plan with patient and is agreeable with above plan. Follow up visit Return in about 4 weeks (around 12/12/2023) for Anxiety. Alba Ken APRN.FARHEEN, signed on November 14, 2023 9:52 AM documented in this encounter [facility] 08-30-2023 Hospital Discharg e instructions Patient Education 08/30/2023 21:00:49 Symptoms With Uncertain Cause Symptoms With Uncertain Cause (Adult) You have been examined, and tests may have been done. However, the exact cause of your symptoms is still not certain. Watch for any new symptoms or worsening of your condition. Another exam or more testing at a later time may be needed. Unless told otherwise, you can go back to your normal routine. Continue to take prescribed medicines as directed. Contact your healthcare provider if you have questions or concerns. Follow-up care Follow up with your healthcare provider if your symptoms do not begin to improve in the next few days, or as advised by our staff. When to seek medical advice Call your healthcare provider if your symptoms get worse or if new symptoms appear. [phone] [employer]. [address] [place] [address]. All rights reserved. This information is not intended as a substitute for professional medical care. Always follow your healthcare professional's instructions. Follow Up Care 08/30/2023 19:00:34 With:MODESTO CHAPMAN Address: [address] [address]- Business (1) When:1-2 days Comments:Call [phone] at 7:30am to schedule a same day appointment for testing. Please be aware there may be a short wait time. Call the number given to schedule ultrasound for tomorrow, return if any worsening or concerning symptoms. [facility] 08-30-2023 Note Discharge Instructions Thank you for allowing [facility] to assist you with your healthcare needs. The following is important discharge information regarding your hospital visit. Diagnosis from Today's Visit Axillary fullness bump in armpit What to Do Next Instructions from Your Care Team Discharge ED Outpatient Vascular Lab - Ordered -- Test Requested: venous for DVT, Upper extremity, Left, Test Reason: Pain, Mon-Fri 8am-4:30pm: Call [phone] at 7:30am to schedule a same day appointment for testing. Please be aware there may be a short wait time. Post Acute Orders No qualifying data available. You Need to Schedule the Following Appointments Follow Up with MODESTO CHAPMAN When Within 1-2 days Why: Call [phone] at 7:30am to schedule a same day appointment for testing. Please be aware there may be a short wait time. Call the number given to schedule ultrasound for tomorrow, return if any worsening or concerning symptoms. Where: [address] [address]- Business (1) Allergies No active allergies Medications Please ask your primary doctor or pharmacist before taking any other medication not listed, including over the counter drugs, herbal medications, vitamins and or supplements as they may interact with your home medications. Please take this list to your next doctor s visit. Bring all medications you take, including over the counter medications, herbals and other supplements with you to your doctor s visit. Patients and families are reminded to discard old lists and to update any records with all medication providers or retail pharmacies. Education Materials Symptoms With Uncertain Cause (Adult) You have been examined, and tests may have been done. However, the exact cause of your symptoms is still not certain. Watch for any new symptoms or worsening of your condition. Another exam or more testing at a later time may be needed. Unless told otherwise, you can go back to your normal routine. Continue to take prescribed medicines as directed. Contact your healthcare provider if you have questions or concerns. Follow-up care Follow up with your healthcare provider if your symptoms do not begin to improve in the next few days, or as advised by our staff. When to seek medical advice Call your healthcare provider if your symptoms get worse or if new symptoms appear. [phone] [employer]. [address] [place] [address], [place] [address]. All rights reserved. This information is not intended as a substitute for professional medical care. Always follow your healthcare professional's instructions. Additional Information VACCINATE! IT SAVES LIVES! Members of the community who have not yet received the COVID-19 vaccine and would like to receive it can visit one of [facility] vaccine clinics. There are many vaccine clinic locations within the [facility]. For locations and available times, please visit [email or web address] [email or web address] It is important to note that some COVID mobile vaccine clinics are held outdoors and may be canceled in rainy or stormy conditions. To learn more about pediatric vaccinations (ages 5-11), we invite you to visit the [facility] webpage. [email or web address]/p [email or web address]-Imnukrxaanf-Freq ylituc-Fwsum-Myznmxmor.html To learn more about the COVID-19 vaccine, we invite you to visit the CDC website for a list of frequently asked questions. https://www.cdc.gov/coronavirus/ 2019-ncov/vaccines/faq.html [facility] Patient Portal Access Instructions: Stay connected with your healthcare team and access your personal medical information anytime with the [facility] Patient Portal. If you would like a full copy of your medical records please contact the [facility] Medical Records Department Tuesday through Tuesday between 8a.m. and 4:30p.m. Please follow the directions below to access the portal: 1.Access the email account you provided upon registration to the hospital.2.Look for an invitation email from [facility].3.Open the email and access the invitation link: Accept Invitation to [facility]4.Fill in the required sheehan to create your account. Sign into [email or web address] with your username and password that you created in the above steps to stay up to date. You can then view a summary of results, a summary of your visits, and the ability to download your summaries to your computer or send the information securely to a physician. Remember that your healthcare information is confidential, so carefully consider who you will allow to register on the [facility] Patient Portal for access to your information. You can also access the [facility] Patient Portal on the [employer]. Simply click on Health Records under Health Data and then click on the [employer] logo. HOW TO SAFELY DISPOSE OF PRESCRIPTION MEDICATIONS Please use one of the following methods to safely dispose of your unused medications. 1.Use a drug disposal kit: the drug disposal pouch allows you to safely discard your old and unused drugs. Ask your nurse to give you one when you are discharged.2.Visit a local take-back location: Many local pharmacies and police departments have programs that collect old and unwanted prescription drugs. Call your local pharmacy or go to http://[employer].Circa/2A0Vk2a to find one close to you.3.Make use of household items: Use cat litter or old coffee grounds to dispose medications if other options are not available. Mix your drugs with these household products, seal them in an airtight container and throw it into the garbage. Call [facility]: [phone] to be sure your drugs can be disposed of in this way. Some medicines may require a different approach.4.Never flush your medications down the toilet. IF YOU HAVE BEEN PRESCRIBED AN OPIOIDS FOR PAIN If you have been prescribed an opioid (such as hydrocodone, oxycodone or morphine), it is critical to understand the possible side effects and risks of opioid pain medications. Even when taken as directed, opioids can have several side effects including: Tolerance, meaning you might need to take more of a medication for the same pain relief. Nausea, vomiting and/or constipation. Sleepiness, dizziness, dry mouth, confusion, depression or itching. Physical dependence, meaning you have withdrawal symptoms when a medication is stopped ? this can develop within a few days. KNOW YOUR RESPONSIBILITIES It is important to know exactly how much and how often to take the opioid pain medications you are prescribed. Never take opioids in higher amounts or more often than prescribed. Do not combine opioids with alcohol or other drugs that cause drowsiness, such as benzodiazepines, also known as benzos, including diazepam and alprazolam, muscle relaxants or sleep aids. Never sell or share prescription opioids. This is illegal. Store opioids in a secure place and out of reach of others (including children, family, friends and visitors). The last page(s) of this document has been signed and retained as a CHART COPY Signatures Patient Education Materials Symptoms With Uncertain Cause Medication Leaflets My discharge plan and instructions have been reviewed and explained to me and I,CHACHA MENDEZ understand my current condition and have read and understand these discharge instructions. I have received a written copy of the plan/instructions. If I have questions, I am aware that I should contact my doctor. Patient/Project Drilling Engineer Signature: Date/Time: Relationship to Patient: Witness Name/Signature: Date/Time: [facility] Evaluation + Plan note No data available for this section [facility] Evaluation note No assessment inform ation available [facility] Work Phone: Evaluation note Diagnosis Anxiety- Primary Anxiety state, unspecified Low energy [facility] Anxiety Anxiety state, unspecified [facility] Anxiety- Primary Anxiety state, unspecified Palpitations Upper back [facility] Diagnosis Anxiety Anxiety state, unspecified [facility] Diagnosis Upper back pain- Primary documented in this encounter [facility]* Diagnosis Upper back pain documented in this encounter [facility] note* Diagnosis Alcoholic intoxication without complication- Primary [facility] Diagnosis Anxiety Anxiety state, unspecified [facility] No data available for this section [facility] Progress note No data available for this section [facility] Chief Complaint and Reason for Visit Chief Complaint PALPITATIONS Advance Directives No Advanced Directives Records Found Advance Directive Response Recorded Date/ Time Living Will No August 22 9:27pm Power of Senior Sales Assistant No August 22, 2023 9:27pm Summary Purpose Family History No Family History Records Found No data available for this section No data available for this section No Family History Records Found No data available for this section No Family History Records FoundNo Family History Records FoundNo Family History Records Found Reason for Referral Specialty Diagnoses / Procedures Referred By Contac t Referred To Contact [facility] Diagnoses Upper back pain Procedures CONSULT TO PHYSICAL THERAPY PHYSICAL THERAPY EVALUATION HIGH COMPLEX 45 MINS Alba Ken, [employer] [address] [place] [address] [facility] [address] [address] Referral ID Status Reason Start Date Expiration Date Visits Requested Visits Authorized [id number] Pending Review Auto-Generat ed Referral 03/06/2024 03/06/2025 1 1 Specialty Diagnoses / Procedures Referred By Contac t Referred To Contact [facility] IMAGING Diagnoses Upper back pain Procedures XR THORACIC GENERAL 3V AP/LAT/SWIMMERS RADEX SPINE THORACIC 3 VIEWS Alba Ken APRN.[employer] [address] [place] [address] [place] [id number] Referral ID Status Reason Start Date Expiration Date Visits Requested Visits Authorized [id number] New Request Auto-Generat ed Referral 03/02/2024 04/01/2025 1 1 Additional Source Comments Care Teams (unrecognized sec tion and content) Team Status: Active Member Role Status Dates No Primary Care Physician Primary Care Provider Active Team Status: Inactive Member Role Status Dates Dr. Uli Bond , DO Emergency Provider Active No Primary Care Physician Primary Care Provider Active Clinical Resource Coordinator Relationship Specialty Start Date End Date Alba Ken, [employer] [address] [place] [address] PCP - General Family Medicine 11/14/23 Clinical Resource Coordinator Relationship Specialty Start Date End Date Alba Ken, [employer] [address] [place] [address] PCP - General Family Medicine 11/14/23 Clinical Resource Coordinator Relationship Specialty Start Date End Date Alba Ken, [employer] [address] [place] [address] PCP - General Family Medicine 11/14/23 Clinical Resource Coordinator Relationship Specialty Start Date End Date Alba Ken, [employer] [address] [place] [address] PCP - General Family Medicine 11/14/23 Clinical Resource Coordinator Relationship Specialty Start Date End Date Alba Ken, [employer] [address] [place] [address] PCP - General Family Medicine 11/14/23 Clinical Resource Coordinator Relationship Specialty Start Date End Date Alba Ken, [employer] [address] [place] [address] PCP - General Family Medicine 11/14/23 Clinical Resource Coordinator Relationship Specialty Start Date End Date Alba Ken, [employer] [address] [facility], [place] [phone] PCP - General Family Medicine 11/14/23 Clinical Resource Coordinator Relationship Specialty Start Date End Date Alba Ken, [employer] [address] [facility], [place] [id number] PCP - General Family Medicine 11/14/23 Clinical Resource Coordinator Relationship Specialty Start Date End Date Alba Ken, [employer] [address] [facility], [place] [phone] PCP - General Family Medicine 11/14/23 Clinical Resource Coordinator Relationship Specialty Start Date End Date Alba Ken, [employer] [address] [facility], [place] [phone] PCP - General Family Medicine 11/14/23 Goals (unrecognized section and content) Goals may be documented in a n alternate section No data available for this section No data available for this section No data available for this section (unrecognized sect ion and content) No Status Records FoundNo Status Records FoundNo Status Records FoundNo Status Records FoundNo Status Records Found INFORMATION SOURCE (unrecogn ized section and content) DATE CREATED AUTHOR 08/25/2023 DATE CREATED AUTHOR AUTHOR'S ORGANIZ ATION 02/14/2024 [facility] DATE CREATED AUTHOR AUTHOR'S ORGANIZ ATION 03/11/2024 [facility] DATE CREATED AUTHOR AUTHOR'S ORGANIZ ATION 03/11/2024 [facility] [place] ([place]) DATE CREATED AUTHOR AUTHOR'S ORGANIZ ATION 03/23/2025 [facility] Source Comments (unrecognize d section and content) In the event this informatio n is protected by the Federal Confidentiality of Alcohol and Drug Abuse Patient Records regulations: The Federal rules restrict any use of the information to criminally investigate or prosecute any alcohol or drug abuse patient.[facility] the event this information is protected by the Federal Confidentiality of Alcohol and Drug Abuse Patient Records regulations: The Federal rules restrict any use of the information to criminally investigate or prosecute any alcohol or drug abuse patient.[facility] the event this information is protected by the Federal Confidentiality of Alcohol and Drug Abuse Patient Records regulations: The Federal rules restrict any use of the information to criminally investigate or prosecute any alcohol or drug abuse patient.[facility] the event this information is protected by the Federal Confidentiality of Alcohol and Drug Abuse Patient Records regulations: The Federal rules restrict any use of the information to criminally investigate or prosecute any alcohol or drug abuse patient.[facility] the event this information is protected by the Federal Confidentiality of Alcohol and Drug Abuse Patient Records regulations: The Federal rules restrict any use of the information to criminally investigate or prosecute any alcohol or drug abuse patient.[facility] the event this information is protected by the Federal Confidentiality of Alcohol and Drug Abuse Patient Records regulations: The Federal rules restrict any use of the information to criminally investigate or prosecute any alcohol or drug abuse patient.[facility] the event this information is protected by the Federal Confidentiality of Alcohol and Drug Abuse Patient Records regulations: The Federal rules restrict any use of the information to criminally investigate or prosecute any alcohol or drug abuse patient.[facility] the event this information is protected by the Federal Confidentiality of Alcohol and Drug Abuse Patient Records regulations: The Federal rules restrict any use of the information to criminally investigate or prosecute any alcohol or drug abuse patient.[facility] the event this information is protected by the Federal Confidentiality of Alcohol and Drug Abuse Patient Records regulations: The Federal rules restrict any use of the information to criminally investigate or prosecute any alcohol or drug abuse patient.[facility] the event this information is protected by the Federal Confidentiality of Alcohol and Drug Abuse Patient Records regulations: The Federal rules restrict any use of the information to criminally investigate or prosecute any alcohol or drug abuse patient.[facility] the event this information is protected by the Federal Confidentiality of Alcohol and Drug Abuse Patient Records regulations: The Federal rules restrict any use of the information to criminally investigate or prosecute any alcohol or drug abuse patient.[facility] the event this information is protected by the Federal Confidentiality of Alcohol and Drug Abuse Patient Records regulations: The Federal rules restrict any use of the information to criminally investigate or prosecute any alcohol or drug abuse patient.[facility] the event this information is protected by the Federal Confidentiality of Alcohol and Drug Abuse Patient Records regulations: The Federal rules restrict any use of the information to criminally investigate or prosecute any alcohol or drug abuse patient.[facility] the event this information is protected by the Federal Confidentiality of Alcohol and Drug Abuse Patient Records regulations: The Federal rules restrict any use of the information to criminally investigate or prosecute any alcohol or drug abuse patient.[facility] Reason for Visit (unrecogniz ed section and content) Reason Comments New Patient Establish care previ ous pcp was Diane Chapman in [facility]. Would like to discuss anxiety has had it since August Specialty Diagnoses / Procedures Referred By Contac t Referred To Contact Diagnoses med appts Procedures med app[place] [address] Referral ID Status Reason Start Date Expiration Date Visits Requested Visits Authorized [id number] Authorized Patient Cleared - Qualified 100% FAS 10/26/2023 01/24/2024 99 99 Reason Comments Refill Request Reason Comments Missed Appointment 1st no show in 365 d ays (1st letter sent) Reason Comments No Show Pt no show for appt on 02/03/24 Reason Comments Follow up anxiety Reason Comments Med Change Request Reason Onset Date Comments Refill Request 04/03/2024 Reason Comments Alcohol intoxication Reason Onset Date Comments Refill Request 05/07/2024 Scheduled Active and Recently Administ ered Medications (unrecognized section and content) Medication Order 04/27/2024 04/28/2024 04/29/2024 Ondansetron (ZOFRAN-ODT) disintegrating tablet 4 mg (COMPLETED) 4 mg, Oral, ONCE, 1 dose, On 04/29/24 at 0245 [id number] (Given - Provid er: Irina Sloan RN) FOR RECORDS PERTAINING TO PATIENTS WHO ARE OR HAVE BEEN ENROLLED IN A CHEMICAL DEPENDENCY/SUBSTANCEABUSE PROGRAM, SOME INFORMATION MAY BE OMITTED. This clinical summary was aggregated from multiple sources. Caution should be exercised in using it in the provision of clinical care. This summary normalizes information from multiple sources, and as a consequence, information in this document may materially change the coding, format and clinical context of patient data. In addition, data may be omitted in some cases. CLINICAL DECISIONS SHOULD BE BASED ON THE PRIMARY CLINICAL RECORDS. [employer] [facility]. provides no warranty or guarantee of the accuracy or completeness of information in this document.
== END 2025-04-06 01:23 | disposition home or self-care (01) ==
LOC: ED 01:17
PROVIDERS: Emergency Provider Emergency Medicine; PCP Nurse Practitioner Family; Visit Provider Emergency Medicine
DX: S06.0X0A Concussion without loss of consciousness, initial encounter (principal); S00.212A Abrasion of left eyelid and periocular area, initial encounter; Y04.0XXA Assault by unarmed brawl or fight, initial encounter; F17.290 Nicotine dependence, other tobacco product, uncomplicated
CPT/HCPCS: 99284